=== PATIENT | male | born 1945 | race Two or more races ===

== ENCOUNTER 2016-08-25 23:54 | Inpatient (IN) | payer MEDICAID, OTHER ==
[~2016-08-25] VITALS: Ht 167.6 cm; Wt 65.3 kg
[2016-08-26] VITALS (16 sets, daily range): BP systolic 109–130; BP diastolic 56–75
--- NOTE | 2016-08-26 | NUR ---
71 YO FEMALE BB AMBULANCE FROM . PT IS ALERT X 0, NON VERBAL. NOTED PURPOSEFUL MOVEMENT. PER EMS THIS IS BASELINE FOR PT. PT IS NOTED TO BE CHRONIC G TUBE, CHRONIC VENT DEPENDENT; PORTEX 7.O, AC 14 TV 450, PEEP 5.0. PT RECTAL TEMP NOTED TO BE 100.6. PT GOWNED, PLACED ON PEAR PICKER. SKIN IS WARM TO TOUCH. 20G RIGHT WRIST IV STARTED. BLOOD SAMPLE OBTAINED AND SENT TO LAB. AWAITING ORDERS FROM PROVIDER
--- NOTE | 2016-08-26 00:10 | NUR ---
RICE CATH PLACED, URINE SAMPLE OBTAINED AND SENT TO LAB
[2016-08-26] MEDS ORDERED: LIDOCAINE 2% JEL UROJET 10 ML MM ONE ×2 (00:15→00:30)
[2016-08-26] MEDS ORDERED: HYDR-548 GT (00:21)
[2016-08-26] MEDS ORDERED: ACET160E13 GT (00:21)
[2016-08-26] MEDS ORDERED: HYDR-3326 GT (00:21)
[2016-08-26] MEDS ORDERED: LOSA50TA21 GT (00:23)
[2016-08-26] MEDS ORDERED: ACETAMINOPHEN ES 500 MG TABLET ONE (00:27)
[2016-08-26] MEDS ORDERED: ACETAMINOPHEN 650 MG/SUPP.RECT RC ONE (00:30)
[2016-08-26] MEDS ORDERED: DOCU50LI GT (00:34)
[2016-08-26] MEDS ORDERED: FERR220S3 GT (00:34)
[2016-08-26] MEDS ORDERED: POTA-10 GT (00:34)
[2016-08-26] MEDS ORDERED: AMLO5TAB2 GT (00:34)
[2016-08-26] MEDS ORDERED: ASPI81TA2 GT (00:34)
[2016-08-26] MEDS ORDERED: SACC250C6 GT (00:34)
[2016-08-26] MEDS ORDERED: LACT10SO GT (00:34)
[2016-08-26] MEDS ORDERED: FLUD0.1T3 GT (00:34)
[2016-08-26 00:35] LABS: EOSINOPHILS # (AUTO) 0.2 /CMM (0.0-0.7); EOSINOPHILS % (AUTO) 0.7 % (0.0-6.0); HEMATOCRIT 24 % (39-51); HEMOGLOBIN 7.4 g/dL (13.5-17.5); LYMPHOCYTES # (AUTO) 0.7 /CMM (0.8-4.8); LYMPHOCYTES % (AUTO) 2.4 % (20.0-44.0); MEAN CORPUSCULAR HEMOGLOBIN 24 PG (26.0-33.0); MEAN CORPUSCULAR HGB CONC 31 g/dl (31.0-36.0); MEAN CORPUSCULAR VOLUME 79 fL (80-96); MONOCYTES # (AUTO) 0.7 /CMM (0.1-1.30); MONOCYTES % (AUTO) 2.5 % (2.0-12.0); NEUTROPHILS # (AUTO) 26.6 /CMM (1.8-8.9); NEUTROPHILS % (AUTO) 94.4 % (43.0-81.0); PLATELET COUNT (AUTO) 532 /CMM (150-450); RDW COEFFICIENT OF VARIATION 17.8 (11.5-15.0); RED BLOOD CELL COUNT(AUTO) 3.07 MIL/uL (4.5-6.0); WHITE BLOOD COUNT (AUTO) 28.2 K/uL (4.3-11.0)
--- NOTE | 2016-08-26 00:36 | NUR ---
MEDICATED PT ORDERED
--- NOTE | 2016-08-26 00:38 | NUR ---
RT NOTE PT RECEIVED MECHANICALLY VENTILATED VIA PORTEX 7 CUFFED TRACH. CUFF INFLATED. PT PLACED ON VENT ON SETTINGS ENDORSED. AC 14 450 40% +5, ALARMS SET PER PROTOCOL AND AUDIBLE. VENT PLUGGED IN TO RED OUTLET. AMBU BAG AT BEDSIDE. NO DISTRESS NOTED WILL CONTINUE TO MONITOR. Addendum: 08/26/16 at 0040 by ALFA WATSON RT Amended: Links added.
[2016-08-26 00:47] LABS: APPEARANCE,URINE CLEAR (CLEAR); BILIRUBIN,URINE NEGATIVE (NEGATIVE); BLOOD, URINE NEGATIVE Ery/uL (NEGATIVE); COLOR,URINE YELLOW (YELLOW); KETONES,URINE NEGATIVE (NEGATIVE); LEUKOCYTE ESTERASE ,URINE NEGATIVE (NEGATIVE); NITRITE, URINE NEGATIVE (NEGATIVE); PROTEIN,URINE TRACE mg/dl (NEGATIVE); UGLUCOSE NEGATIVE (NEGATIVE); UROBILINOGEN,URINE 0.2 EU/dL (0.2)
[2016-08-26 00:47] LABS: CALCIUM, SERUM 8.6 mg/dL (8.5-10.1); CREATININE 0.7 mg/dL (0.6-1.3); INR 1.04 (0.87-1.13); POTASSIUM 4.1 mmol/L (3.5-5.1); PROTHROMBIN TIME 11.2 SECS (9.5-12.7)
[2016-08-26 00:52] LABS: BACTERIA,URINE None seen /HPF (None Seen); MUCUS,URINE Rare /LPF (None Seen); RBC,URINE NONE SEEN /HPF (0-2); SQUAMOUS EPITHELIAL CELL,UR Rare /HPF (None Seen); WBC,URINE 0-2 /HPF (0-3)
[2016-08-26 01:00] LABS: ALBUMIN 1.5 g/dL (3.4-5.0); BILIRUBIN,TOTAL 0.2 mg/dL (0.2-1.0); TOTAL PROTEIN, SERUM 6.2 g/dL (6.4-8.2)
[2016-08-26 01:01] LABS: TROPONIN I 0.018 ng/mL (0.00-0.056)
[2016-08-26] MEDS ORDERED: IV NS 0.9% 100 ML IV ONE (01:18)
[2016-08-26] MEDS ORDERED: IV NS 0.9% 1,000 ML ONE (01:18)
[2016-08-26] MEDS ORDERED: IV SET PRIMARY PUMP SET 1 EA INFUS.SET MC ONE ×2 (01:18→09:26)
[2016-08-26] MEDS ORDERED: IV NS 0.9% 1,000 ML BAG IV ONE (01:30)
[2016-08-26] MEDS ORDERED: AZTREONAM 1 G in IV NS 0.9% 100 ML IV ONE (01:30)
[2016-08-26] MEDS ORDERED: AZTREONAM 1 G VIAL ONE (01:30)
[2016-08-26] MEDS ORDERED: LEVOFLOXACIN 750 MG /D5W 150ML PIGGYBACK IV ONE (01:30)
--- NOTE | 2016-08-26 01:37 | NUR ---
REPORT GIVEN TO CLEMENTE FOR MEL
--- NOTE | 2016-08-26 01:56 | NUR ---
TRANSPORTED PT TO TELE BED WITHOUT INCIDENT WITH RT
[2016-08-26 01:59] LABS: BAND % (MANUAL) 6 % (0.0-5.0); LYMPHOCYTES % (MANUAL) 1 % (16-48); MONOCYTES % (MANUAL) 1 % (0-11.0); NEUTROPHILS % (MANUAL) 92 (42-76)
--- NOTE | 2016-08-26 02:00 | NUR ---
TELE AUTO RENTAL SUPERVISOR INITIAL NOTES ADMIT PT FROM ER VIA GURNEY WITH MECHANICAL VENT SET UP BY RT ORDERED. TRACHE PORTEX 7.0, TV 450, AC 14, PEEP5.0 . ANTBIOTIC INFUSING AT THIS TIME, NO ADVERSE REACTION NOTED. PT NON VERBAL BUT AROUSES TO TOUCH AND TO HIS NAME. NOT IN ANY ACUTE DISTRESS NOTED.RICE TO GRAVITY WITH CLEAR YELLOW OUTPUT NOTED. G-TUBE CLAMPED AT THIS TIME. NO RESIDUAL NOTED. SKIN WARM AND DRY TO TOUCH NOTED SACRUM AREA PARTIAL THICKNESS LOSS. NO EDEMA AND RIGHT ARM SWOLLEN AND COLD TO TOUCH, PULSE PRESENT ON RADIAL AND BRACHIAL. TELE SR PER MONITOR. KEPT HIM COMFORTABLE AND WARM AT ALL TIMES. WILL CONTINUE TO MONITOR.
--- NOTE | 2016-08-26 02:50 | NUR ---
SUPERVISOR CLAM BED/NOTES LATE ENTRY. LAB CALLED THAT THEY WANT TO FIND OUT IF PT NEEDS TO TRANSFUSE THE BLOOD. I TOLD HER THAT STILL WAIT FOR HIS PRIMARY DR FOR ADMITTING ORDERS. CALLED [facility] AND WAIT FOR RESPONSE. COMPUTER SHOT DOWN AT THIS TIME. WILL CONTINUE TO MONITOR.
--- NOTE | 2016-08-26 04:30 | NUR ---
FRONT DESK CLERK/NOTES LATE ENTRY SPOKE TO DR JOHNNY URRUTIA AND GOT ADMITTING ORDERS NOTED AND CARRIED OUT. PT RESTING COMFORTABLY IN BED WITHOUT ANY ACUTE DISTRESS NOTED. SUCTION CHELSEA HIS MOUTH NEEDED. TELE SR .
--- NOTE | 2016-08-26 07:10 | NUR ---
TELE FOOD SELECTOR CLOSING NOTES PT RESTING AT THIS TIME WITHOUT ANY ACUTE DISTRESS NOTED. STILL ON MECHANICAL VENT. STABLE CHELSEA SINCE ADMISSION. TELE SR PER MONITOR. RICE DRAINING WELL WITH CLEAR YELLOW OUTPUT . KEPT HIM WARM AND COMFORTABLE AT ALL TIMES. ENDORSE TO AM NURSE FOR CONTINUITY OF CARE.
[2016-08-26 07:18] LABS: EOSINOPHILS # (AUTO) 0.2 /CMM (0.0-0.7); EOSINOPHILS % (AUTO) 0.7 % (0.0-6.0); HEMATOCRIT 24 % (39-51); HEMOGLOBIN 7.4 g/dL (13.5-17.5); LYMPHOCYTES # (AUTO) 0.6 /CMM (0.8-4.8); LYMPHOCYTES % (AUTO) 2.2 % (20.0-44.0); MEAN CORPUSCULAR HEMOGLOBIN 25 PG (26.0-33.0); MEAN CORPUSCULAR HGB CONC 31 g/dl (31.0-36.0); MEAN CORPUSCULAR VOLUME 79 fL (80-96); MONOCYTES # (AUTO) 0.5 /CMM (0.1-1.30); MONOCYTES % (AUTO) 1.8 % (2.0-12.0); NEUTROPHILS # (AUTO) 27.9 /CMM (1.8-8.9); NEUTROPHILS % (AUTO) 95.3 % (43.0-81.0); PLATELET COUNT (AUTO) 469 /CMM (150-450); RDW COEFFICIENT OF VARIATION 17.9 (11.5-15.0); RED BLOOD CELL COUNT(AUTO) 3.02 MIL/uL (4.5-6.0); WHITE BLOOD COUNT (AUTO) 29.2 K/uL (4.3-11.0)
--- NOTE | 2016-08-26 07:20 | NUR ---
RN INITIAL NOTE REPORT RECEIVED FROM JUSTINA HOOD. PT A/OX1 NON VERBAL . TELE SR. IV L HAND #20G INTACT PATENT AND FLUSHED. NO C/O ACUTE SOB. PORTEX #7 AC 14 TV 450 PEEP 5. GT CLAMPED. F/C INTACT. ALL SAFETY MEASURES IN PLACE. WILL CONTINUE TO MONITOR.
[2016-08-26 07:29] LABS: INR 1.06 (0.87-1.13); PROTHROMBIN TIME 11.4 SECS (9.5-12.7)
[2016-08-26 07:32] LABS: CALCIUM, SERUM 8.8 mg/dL (8.5-10.1); CREATININE 0.6 mg/dL (0.6-1.3); POTASSIUM 3.9 mmol/L (3.5-5.1)
[2016-08-26] MEDS ORDERED: FEE PK DOSING 1 MIN EA MC ONE (08:08)
[2016-08-26] MEDS ORDERED: SECONDARY IV SET 1 EA INFUS.SET MC ONE ×2 (09:26→20:03)
[2016-08-26] MEDS ORDERED: IV NS 0.9% 250 ML IV ONE ×2 (09:27→13:01)
[2016-08-26] MEDS: VANCOMYCIN 1 GM in IV D5W 250 ML IV SCH ×2 (10:20→20:55)
[2016-08-26 11:24] LABS: BAND % (MANUAL) 3 % (0.0-5.0); EOSINOPHILS % (MANUAL) 3 % (0-4); LYMPHOCYTES % (MANUAL) 1 % (16-48); MONOCYTES % (MANUAL) 1 % (0-11.0); NEUTROPHILS % (MANUAL) 92 (42-76)
--- NOTE | 2016-08-26 12:18 | NUR ---
RN NOTE SPOKE TO LUIS ALFREDO SOTO REPORTED H/H 7.4 ORDERED 1 UNIT OF PRBC. GTF ORDERED. JEVETY 75 ML/HR.
[2016-08-26] MEDS ORDERED: BLOOD IV SET 1 EA INFUS.SET MC ONE (13:01)
--- NOTE | 2016-08-26 16:58 | NUR ---
RN NOTE 1 UNIT OF PRBC INFUSED ORDERED STAT CBC.
[2016-08-26] MEDS: FIBERSOURCE HN 1,000 ML BOTTLE GT SCH (17:38)
[2016-08-26 17:58] LABS: BASOPHILS # (AUTO) 0.2 /CMM (0.0-0.2); BASOPHILS % (AUTO) 0.5 % (0.0-2.0); EOSINOPHILS % (AUTO) 0.1 % (0.0-6.0); HEMATOCRIT 28 % (39-51); HEMOGLOBIN 8.7 g/dL (13.5-17.5); LYMPHOCYTES # (AUTO) 0.5 /CMM (0.8-4.8); LYMPHOCYTES % (AUTO) 1.7 % (20.0-44.0); MEAN CORPUSCULAR HEMOGLOBIN 25 PG (26.0-33.0); MEAN CORPUSCULAR HGB CONC 32 g/dl (31.0-36.0); MEAN CORPUSCULAR VOLUME 79 fL (80-96); MONOCYTES # (AUTO) 0.6 /CMM (0.1-1.30); MONOCYTES % (AUTO) 1.9 % (2.0-12.0); NEUTROPHILS # (AUTO) 28.6 /CMM (1.8-8.9); NEUTROPHILS % (AUTO) 95.8 % (43.0-81.0); PLATELET COUNT (AUTO) 544 /CMM (150-450); RDW COEFFICIENT OF VARIATION 17.8 (11.5-15.0); RED BLOOD CELL COUNT(AUTO) 3.49 MIL/uL (4.5-6.0); WHITE BLOOD COUNT (AUTO) 29.9 K/uL (4.3-11.0)
[2016-08-26 18:51] LABS: BAND % (MANUAL) 4 % (0.0-5.0); LYMPHOCYTES % (MANUAL) 2 % (16-48); NEUTROPHILS % (MANUAL) 89 (42-76)
[2016-08-26 18:52] LABS: BASOPHILS % (MANUAL) 0 % (0.0-2.0); EOSINOPHILS % (MANUAL) 0 % (0-4); MONOCYTES % (MANUAL) 5 % (0-11.0)
--- NOTE | 2016-08-26 19:15 | NUR ---
CLERK OF WORKS NOTES RECEIVED ON BED OBTUNDED,NON VERBAL,OPEN EYES TO NAME AND TOUCH,FULL CODE.ON TRACH TO VENT,SETTINGS TOLERATED WELL.WITH GT FEEDING OF FIBERSOURCE AT 75ML/HR RATE, NO RESIDUAL NOTED.HOB ELEVATED FOR ASPIRATION PRECAUTION.S/P TRANSFUSION ON PRBC 1 UNIT FOR H/H 7.4/LATEST WAS 8.7.WITH RICE CATH IN PLACE DRAINING CLEAR YELLOW OUTPUT.REPOSITION PER PROTOCOL.WILL CONTINUE TO MONITOR STATUS.
--- NOTE | 2016-08-26 19:21 | NUR ---
RN CLOSING NOTE PT A/OX1 NON VERBAL UKRAINIAN SPEAKING . TELE SR. IV L HAND #20G INTACT PATENT AND FLUSHED. NO C/O ACUTE SOB. PORTEX #7 AC 14 TV 450 PEEP 5. GT CLAMPED FIBERSOURCE @75ML/HR. F/C INTACT. ALL SAFETY MEASURES IN PLACE. REPORT GIVEN TO [facility] NURSE FOR EML.
--- NOTE | 2016-08-26 20:00 | NUR ---
DEPARTMENT EDITOR NOTES ZOYSN 4.5 GM IVPB HUNG
[2016-08-26] MEDS: PIPERACILLIN /TAZOBACTAM 4.5 G in IV D5W 50 ML IV SCH ×2 (20:05→23:45)
--- NOTE | 2016-08-26 20:15 | NUR ---
SHIPYARD SUPERVISOR NOTES SR-100 HEART RATE ON TELE MONITOR,LOTS OF MUCUS COMIKNG OUT FROM THE NOSE AND MOUTH, SUCTIONED.
[2016-08-26] MEDS ORDERED: LACTULOSE 10 G/15 ML UDC (PYXIS) GT PRN (20:30)
[2016-08-26] MEDS ORDERED: ACETAMINOPHEN 650 MG/20.3 ML UDC GT PRN (20:30)
[2016-08-26] MEDS ORDERED: HYDROCODONE/APAP 5/325MG 1 EACH TABLET GT PRN (21:00)
[2016-08-26] MEDS ORDERED: HYDROCODONE/APAP 10/325MG 1 EA TABLET GT PRN (21:00)
--- NOTE | 2016-08-26 21:00 | NUR ---
OSTEOLOGY TEACHER NOTES DUE VANCOMYCIN 1GM IVPB HUNG
[2016-08-26] MEDS ORDERED: LIDOCAINE 1%-EPI 1:200,000 SDV 10 ML VIAL IJ ONE (21:30)
[2016-08-26] MEDS ORDERED: SILVER NITRATE APPLICATOR 1 EA BOX TP ONE (21:30)
[2016-08-26] MEDS ORDERED: CELLULOSE,OXIDIZED 1 EACH EACH MC ONE (21:30)
--- NOTE | 2016-08-26 23:56 | NUR ---
STONE RUBBER NOTES DUE ROSIBEL 4.5 GM IVPB HUNG
[2016-08-27] VITALS (8 sets, daily range): BP systolic 113–133; BP diastolic 64–76
[2016-08-27] MEDS ORDERED: PIPERACILLIN /TAZOBACTAM 3.375 G in IV D5W 50 ML IV SCH ×2
--- NOTE | 2016-08-27 01:03 | NUR ---
SHEET METAL ENGINEER NOTES COUGHING,SUCTION NEEDED.
[2016-08-27] MEDS: PIPERACILLIN /TAZOBACTAM 4.5 G in IV D5W 50 ML IV SCH ×2 (05:39→14:46)
[2016-08-27 06:51] LABS: EOSINOPHILS # (AUTO) 0.2 /CMM (0.0-0.7); EOSINOPHILS % (AUTO) 0.7 % (0.0-6.0); HEMATOCRIT 26 % (39-51); HEMOGLOBIN 8.3 g/dL (13.5-17.5); LYMPHOCYTES # (AUTO) 0.5 /CMM (0.8-4.8); LYMPHOCYTES % (AUTO) 2.1 % (20.0-44.0); MEAN CORPUSCULAR HEMOGLOBIN 25 PG (26.0-33.0); MEAN CORPUSCULAR HGB CONC 32 g/dl (31.0-36.0); MEAN CORPUSCULAR VOLUME 80 fL (80-96); MONOCYTES # (AUTO) 0.9 /CMM (0.1-1.30); MONOCYTES % (AUTO) 3.6 % (2.0-12.0); NEUTROPHILS # (AUTO) 23.1 /CMM (1.8-8.9); NEUTROPHILS % (AUTO) 93.6 % (43.0-81.0); PLATELET COUNT (AUTO) 495 /CMM (150-450); RDW COEFFICIENT OF VARIATION 18.3 (11.5-15.0); RED BLOOD CELL COUNT(AUTO) 3.31 MIL/uL (4.5-6.0); WHITE BLOOD COUNT (AUTO) 24.7 K/uL (4.3-11.0)
--- NOTE | 2016-08-27 06:54 | NUR ---
AIRPLANE ELECTRICIAN NOTES FREQUENT SUCTIONING NEEDED.VITALS REMAINS STABLE.GT FEEDING TOLERATED WELL.FOR INCISIONAL BIOPSY OF SUPRA PUBIC LESIONS BY GAVIN ESPINOZA AT BEDSIDE.CONSENT SIGNED.IN NO ACUTE DISTRESS.WILL ENDORSE TO DAY NURSE FOR MEL.
[2016-08-27 06:57] LABS: CALCIUM, SERUM 8.9 mg/dL (8.5-10.1); CREATININE 0.7 mg/dL (0.6-1.3); MAGNESIUM 1.9 mg/dL (1.8-2.4); PHOSPHORUS 2.2 mg/dL (2.5-4.9); POTASSIUM 3.4 mmol/L (3.5-5.1)
--- NOTE | 2016-08-27 07:45 | NUR ---
MS RN RECEIVED ON BED, AWAKE,NONVERBAL, VENT DEPENDENT PATIENT W/ TRACT CONNECTED TO VENT, RICE TO GRAVITY DRAINING YELLOWISH URINE, NO S/S OF PAIN, G TUBE FEEDING ON AT 75ML/HOUR, REPOSITIONED FOR COMFORT,ALL NEEDS ATTENDED.
[2016-08-27 08:14] LABS: BAND % (MANUAL) 2 % (0.0-5.0); EOSINOPHILS % (MANUAL) 1 % (0-4); LYMPHOCYTES % (MANUAL) 4 % (16-48); MONOCYTES % (MANUAL) 7 % (0-11.0); NEUTROPHILS % (MANUAL) 86 (42-76)
--- NOTE | 2016-08-27 08:30 | NUR ---
MS TN DUE MEDS GIVEN VIA G TUBE,TOLERATED WELL W/O RESIDUAL.
--- NOTE | 2016-08-27 08:58 | NUR ---
WOUND CARE CONSULT: PT PRESENTS WITH LARGE GROWTH TO LOWER ABDOMEN AND DEEP TISSUE INJURY IN EVOLUTION TO SACRAL AREA, PRESENT ON ADMISSION. PT IS EXTREMELY THIN AND BONY. PT ON PORTIA ISOFLEX LOW AIRLOSS BED. ALL SKIN PROTECTION MEASURES IN PLACE. WOUND AND SKIN RECOMMENDATIONS DISCUSSED WITH NURSING STAFF. MD IN AGREEMENT WITH PLAN OF CARE. SURGICAL CONSULT IN PLACE PER DNP. Addendum: 08/27/16 at 0901 by MARLYN SAL WNDNU Amended: Links added.
[2016-08-27] MEDS: HYDROGEL DRESSING 90 GM TUBE TP SCH (09:00)
[2016-08-27] MEDS ORDERED: Z GUARD REMEDY 2 OZ OINT TP PRN (09:00)
[2016-08-27] MEDS: FERROUS SULFATE UDC 300 MG/5 ML UDC GT SCH (10:19)
[2016-08-27] MEDS: VANCOMYCIN 1 GM in IV D5W 250 ML IV SCH ×2 (10:19→21:31)
[2016-08-27] MEDS: DOCUSATE SODIUM LIQ 100 MG/10 ML UDC GT SCH (10:19)
[2016-08-27] MEDS: ASPIRIN 81 MG TAB.CHEW GT SCH (10:20)
[2016-08-27] MEDS: AMLODIPINE BESYLATE 5 MG TABLET GT SCH ×2 (10:20→17:22)
[2016-08-27] MEDS: LOSARTAN POTASSIUM 50 MG TABLET GT SCH (10:21)
[2016-08-27] MEDS: LACTOBACILLUS RHAMNOSUS GG 1 EACH CAP.SPRINK GT SCH ×2 (10:21→17:19)
[2016-08-27] MEDS: FLUDROCORTISONE 0.1 MG TABLET GT SCH (10:22)
[2016-08-27] MEDS: POTASSIUM CHLORIDE 20 MEQ POWDER PACKET GT SCH (10:22)
--- NOTE | 2016-08-27 11:00 | NUR ---
MS RN WAS SEEN BY DR. JENNIFER Robertson/ ORDERS MADE AND CARRIED OUT.
[2016-08-27] MEDS ORDERED: K PHOS NEUTRAL 250 MG TABLET PO ONE (12:30)
--- NOTE | 2016-08-27 14:00 | NUR ---
MS RN REINSERTED RICE BECAUSE, OLD RICE WAS LEAKING.
[2016-08-27] MEDS: HYDROGEL DRESSING 90 GM TUBE TP PRN ×2 (14:34→14:45)
[2016-08-27] MEDS: Z GUARD REMEDY 2 OZ OINT TP SCH (14:34)
--- NOTE | 2016-08-27 16:55 | NUR ---
MS RN WAS SEEN BY DR. ANDREWS,WANTS TO GET REPORT FORM PT'S ONCOLOGY.
[2016-08-27] MEDS ORDERED: POTASSIUM CHLORIDE 20 MEQ POWDER PACKET GT SCH (17:00)
--- NOTE | 2016-08-27 17:00 | NUR ---
MS RN CALLED SON FOR MD'S NUMBER, SMITH DR. GARRETT'S OFFICE, NOBODY ANSWER.
--- NOTE | 2016-08-27 18:50 | NUR ---
MS RN ON BED, NO DISTRESS NOTED,ALL NEEDS ATTENDED.
--- NOTE | 2016-08-27 20:00 | NUR ---
RECEIVED PATIENT IN BED, ALERT AND AWAKE, TRACH DEPENDENT, NON-VERBAL, NO SOB, NO RESPIRATORY DISTRESS, WITH MODERATE TO THICK SECRETIONS FROM MOUTH AND NOSE, RENDERED SUCTION PRN, ABLE TO CONVEY NEEDS VIA GESTURES, ON PEG TUBE FEEDING, TOLERATED WELL, PEG TUBE AUSCULTATED, POSITIVE PLACEMENT, RESIDUAL 0, RICE CATHETER DRAINING WELL, KEPT HOB ELEVATED, KEPT SAFE AND COMFORTABLE, CALL LIGHT WITHIN REACH.
[2016-08-27] MEDS ORDERED: SECONDARY IV SET 1 EA INFUS.SET MC ONE (20:11)
[2016-08-27] MEDS: MEROPENEM 500 MG in IV NS 0.9% 50 ML IV SCH (20:12)
[2016-08-27] MEDS: FIBERSOURCE HN 1,000 ML BOTTLE GT SCH (20:12)
--- NOTE | 2016-08-27 20:25 | NUR ---
DR. RON PERFORMED SUPRAPUBIC BIOPSY AT THE BEDSIDE, PROCEDURE TOLERATED WELL, MONITOR FOR BLEEDING.
--- NOTE | 2016-08-27 21:29 | NUR ---
VANCOMYCIN 1GRAM IVP WILL BE ADMINISTERED, VANCO TROUGH 15
[2016-08-28] VITALS (8 sets, daily range): BP systolic 107–132; BP diastolic 65–90
--- NOTE | 2016-08-28 03:27 | NUR ---
PATIENT IS AWAKE AND ALERT, ABLE TO GESTURE IF NEEDED SUCTION, HELPS WITH SUCTION. NO BLEEDING TO SUPRAPUBIC LESION. WILL CONTINUE TO MONITOR.
[2016-08-28] MEDS: MEROPENEM 500 MG in IV NS 0.9% 50 ML IV SCH ×3 (04:26→20:40)
[2016-08-28] MEDS ORDERED: IV NS 0.9% 250 ML IV ONE (05:06)
--- NOTE | 2016-08-28 06:22 | NUR ---
PATIENT IS ALERT AND AWAKE, VENTILATOR IN GOOD WORKING CONDITION, NO SOB, NO DISTRESS, NOT IN APPARENT PAIN, NO FACIAL GRIMACING, NO RESTLESSNESS, RENDERED SUCTION PRN, PEG TUBE FEEDING TOLERATED WELL, NO BLEEDING TO SUPRAPUBIC LESION, PROVIDED GOOD PERINEAL CARE, WOUND CARE PERFORMED, KEPT SAFE AND COMFORTABLE, CALL LIGHT WITHIN REACH.
[2016-08-28 06:37] LABS: BASOPHILS % (AUTO) 0.2 % (0.0-2.0); EOSINOPHILS # (AUTO) 0.1 /CMM (0.0-0.7); EOSINOPHILS % (AUTO) 0.7 % (0.0-6.0); HEMATOCRIT 27 % (39-51); HEMOGLOBIN 8.5 g/dL (13.5-17.5); LYMPHOCYTES # (AUTO) 0.4 /CMM (0.8-4.8); LYMPHOCYTES % (AUTO) 1.9 % (20.0-44.0); MEAN CORPUSCULAR HEMOGLOBIN 25 PG (26.0-33.0); MEAN CORPUSCULAR HGB CONC 32 g/dl (31.0-36.0); MEAN CORPUSCULAR VOLUME 80 fL (80-96); MONOCYTES # (AUTO) 0.9 /CMM (0.1-1.30); MONOCYTES % (AUTO) 3.9 % (2.0-12.0); NEUTROPHILS # (AUTO) 20.5 /CMM (1.8-8.9); NEUTROPHILS % (AUTO) 93.3 % (43.0-81.0); PLATELET COUNT (AUTO) 503 /CMM (150-450); RDW COEFFICIENT OF VARIATION 18.2 (11.5-15.0); RED BLOOD CELL COUNT(AUTO) 3.38 MIL/uL (4.5-6.0)
[2016-08-28 06:53] LABS: CALCIUM, SERUM 8.9 mg/dL (8.5-10.1); CREATININE 0.7 mg/dL (0.6-1.3); PHOSPHORUS 2.4 mg/dL (2.5-4.9); POTASSIUM 3.4 mmol/L (3.5-5.1)
--- NOTE | 2016-08-28 07:25 | NUR ---
TELE/RN AM NOTES RECEIVED PATIENT IN BED, AWAKE, RESPONSIVE TO VERBAL STIMULI, NO S/SX OF PAIN, HOB ELEVATED, ON MECHANICAL VENTILATION, O2 SAT 100%. TELE MONITOR ATTACHED, HR 98, SINUS RHYTHM. RICE CATHETER INTACT, WITH CLEAR YELLOW URINE, NO SEDIMENTS. IV PERIPHERAL LINE ON LEFT HAND PATENT, INTACT. GT INTACT, PATENT, NO RESIDUAL. BED IN LOW POSITION, 2 SR UP FOR SAFETY, NEEDS MET, WITH CALL LIGHT WITHIN EASY REACH. WILL CONTINUE TO MONITOR ACCORDINGLY.
[2016-08-28 07:41] LABS: BAND % (MANUAL) 3 % (0.0-5.0); EOSINOPHILS % (MANUAL) 1 % (0-4); LYMPHOCYTES % (MANUAL) 3 % (16-48); MONOCYTES % (MANUAL) 2 % (0-11.0); NEUTROPHILS % (MANUAL) 91 (42-76)
[2016-08-28] MEDS: ASPIRIN 81 MG TAB.CHEW GT SCH (08:40)
[2016-08-28] MEDS: FERROUS SULFATE UDC 300 MG/5 ML UDC GT SCH (08:40)
[2016-08-28] MEDS: AMLODIPINE BESYLATE 5 MG TABLET GT SCH ×2 (08:41→18:08)
[2016-08-28] MEDS: LOSARTAN POTASSIUM 50 MG TABLET GT SCH (08:41)
[2016-08-28] MEDS: LACTOBACILLUS RHAMNOSUS GG 1 EACH CAP.SPRINK GT SCH ×2 (08:41→18:08)
[2016-08-28] MEDS: Z GUARD REMEDY 2 OZ OINT TP SCH (08:42)
[2016-08-28] MEDS: HYDROGEL DRESSING 90 GM TUBE TP SCH (08:42)
[2016-08-28] MEDS: VANCOMYCIN 1 GM in IV D5W 250 ML IV SCH ×2 (08:46→21:19)
[2016-08-28] MEDS: DOCUSATE SODIUM LIQ 100 MG/10 ML UDC GT SCH (08:47)
[2016-08-28] MEDS: FIBERSOURCE HN 1,000 ML BOTTLE GT SCH (13:49)
[2016-08-28] MEDS ORDERED: K PHOS NEUTRAL 250 MG TABLET PO ONE (14:00)
--- NOTE | 2016-08-28 18:00 | NUR ---
RT PT RECEIVED TRACH'D ON PORTEX #7 CUFFED ON [facility] VENT WITH SETTINGS PER MD ORDER. PRE BILLING SPECIALIST DONE. BILAT RHONCHI BREATH SOUNDS. SUCTIONED MODERATE AMOUNTS OF THICK, PALE YELLOW SECRETIONS. TRACH SECURE AND AIRWAY PATENT. AMBU BAG AT BEDSIDE. ALARMS ON AND SET PROPERLY. VENT PLUGGED INTO RED OUTLET. NO SOB OR SIGNS OF DISTRESS NOTED AT THIS TIME. WILL CONTINUE TO MONITOR THE PATIENT FOR ANY CHANGES. Addendum: 08/28/16 at 1825 by TERRI HERRERA RT Amended: Links added.
--- NOTE | 2016-08-28 18:56 | NUR ---
TELE/RN CLOSING NOTES PATIENT REMAINS STABLE, NO CHANGES IN CONDITION NOTED DURING THE SHIFT. MECHANICAL VENTILATOR CONTINUOUSLY, 02 SATURATION 100%. TELE MONITOR ATTACHED WITH HR 100/H SINUS TACHYCARDIA, NO S/SX OF PAIN NO DISTRESS NOTED, SUCTIONED NEEDED, WITH. HOB ELEVATED FOR ASPIRATION PRECAUTION AND COMFORT. IV LINE LEFT HAND INTACT, PATENT. GT FEEDING TOLERATING WELL, NO RESIDUAL, FLASHED WITH WATER, F/C INTACT, WITH YELLOW CLOUDY URINE 100O CC OUTPUT THROUGHOUT THE SHIFT. SKIN CARE DONE, WOUND DRESSINGS CHANGED. TURNED, REPOSITIONED EVERY 2 HOURS, INCONTINENT CARE PROVIDED, UNABLE TO COLLECT STOOL FOR C-DIFF, NO BOWEL MOVEMENT DURING THE SHIFT. BED IN LOW POSITION, 2 SR UP FOR SAFETY, WITH CALL LIGHT WITHIN EASY REACH ALL THE TIME, WILL ENDORSED TO THE SILK SNAPPER NURSE ACCORDINGLY FOR EML
--- NOTE | 2016-08-28 20:00 | NUR ---
PATIENT IN BED, ALERT AND AWAKE, NON-VERBAL, TRACH DEPENDENT, VENTILATOR IN GOOD WORKING CONDITION, NO SOB, NO DISTRESS, NO FACIAL GRIMACING, NO RESTLESSNESS, RENDERED SUCTION, PATIENT HAS MODERATE SECRETIONS COMING FROM THE NOSE AND MOUTH, PEG TUBE FEEDING TOLERATED WELL, PEG TUBE AUSCULTATED, WITH 0 RESIDUAL, FLUSHED. RICE CATHETER IS DRAINING WELL OF THIEN COLORED URINE, KEPT HOB ELEVATED, ON ASPIRATION PRECAUTION, KEPT SAFE AND COMFORTABLE, CALL LIGHT WITHIN REACH.
--- NOTE | 2016-08-28 21:37 | NUR ---
VANCOMYCIN 1GRAM IVP GIVEN, VANCO TROUGH 15
[2016-08-29] VITALS: BP 115/61
[2016-08-29 00:03] VITALS: BP 115/61
[2016-08-29] MEDS: FIBERSOURCE HN 1,000 ML BOTTLE GT SCH (03:12)
--- NOTE | 2016-08-29 03:37 | NUR ---
PATIENT GIVEN BED BATH, PERFORMED WOUND CARE, SUCTIONED NEEDED.
[2016-08-29 04:00] VITALS: BP 131/70
--- NOTE | 2016-08-29 04:43 | NUR ---
NOTED LEFT HAND SALINE LOCK IS INFILTRATED. DISCONTINUED LINE, STARTED NEW LINE TO LEFT WRIST USING #24 GAUGE, GOOD BACK FLOW, PROCEDURE TOLERATED WELL.
[2016-08-29] MEDS: MEROPENEM 500 MG in IV NS 0.9% 50 ML IV SCH ×2 (05:50→13:11)
[2016-08-29 06:30] LABS: EOSINOPHILS # (AUTO) 0.2 /CMM (0.0-0.7); EOSINOPHILS % (AUTO) 0.9 % (0.0-6.0); HEMATOCRIT 26 % (39-51); HEMOGLOBIN 8.2 g/dL (13.5-17.5); LYMPHOCYTES # (AUTO) 0.5 /CMM (0.8-4.8); LYMPHOCYTES % (AUTO) 2.2 % (20.0-44.0); MEAN CORPUSCULAR HEMOGLOBIN 25 PG (26.0-33.0); MEAN CORPUSCULAR HGB CONC 32 g/dl (31.0-36.0); MEAN CORPUSCULAR VOLUME 79 fL (80-96); MONOCYTES # (AUTO) 0.7 /CMM (0.1-1.30); MONOCYTES % (AUTO) 3.2 % (2.0-12.0); NEUTROPHILS # (AUTO) 20.8 /CMM (1.8-8.9); NEUTROPHILS % (AUTO) 93.7 % (43.0-81.0); PLATELET COUNT (AUTO) 443 /CMM (150-450); RED BLOOD CELL COUNT(AUTO) 3.25 MIL/uL (4.5-6.0); WHITE BLOOD COUNT (AUTO) 22.2 K/uL (4.3-11.0)
--- NOTE | 2016-08-29 06:45 | NUR ---
PATIENT RESTING COMFORTABLY IN BED, ALERT AND AWAKE, NO SOB, NOT IN APPARENT DISTRESS, NO FACIAL GRIMACING, RENDERED SUCTION DURING SHIFT, HAS THICK SECRETIONS COMING FROM NOSE AND MOUTH, CHANGED TRACH DRESSING, PEG TUBE FEEDING TOLERATED WELL, RICE CATHETER DRAINING WELL OF THIEN COLORED URINE, RENDERED WOUND CARE, PROVIDED GOOD PERINEAL CARE, KEPT SAFE AND COMFORTABLE, CALL LIGHT WITHIN REACH.
[2016-08-29 06:51] LABS: CALCIUM, SERUM 8.4 mg/dL (8.5-10.1); CREATININE 0.6 mg/dL (0.6-1.3); MAGNESIUM 1.9 mg/dL (1.8-2.4); PHOSPHORUS 2.4 mg/dL (2.5-4.9); POTASSIUM 3.7 mmol/L (3.5-5.1); RETICULOCYTE COUNT 1.6 % (0.6-2.5)
[2016-08-29 07:04] LABS: URIC ACID 2.8 mg/dL (2.6-7.2)
[2016-08-29 08:00] VITALS: BP 138/62
[2016-08-29] MEDS: FERROUS SULFATE UDC 300 MG/5 ML UDC GT SCH (08:03)
[2016-08-29] MEDS: DOCUSATE SODIUM LIQ 100 MG/10 ML UDC GT SCH (08:03)
[2016-08-29] MEDS: ASPIRIN 81 MG TAB.CHEW GT SCH (08:03)
[2016-08-29] MEDS: LOSARTAN POTASSIUM 50 MG TABLET GT SCH (08:04)
[2016-08-29] MEDS: AMLODIPINE BESYLATE 5 MG TABLET GT SCH (08:04)
[2016-08-29] MEDS: LACTOBACILLUS RHAMNOSUS GG 1 EACH CAP.SPRINK GT SCH (08:04)
[2016-08-29] MEDS: HYDROGEL DRESSING 90 GM TUBE TP SCH (08:05)
[2016-08-29] MEDS: Z GUARD REMEDY 2 OZ OINT TP SCH (08:05)
[2016-08-29] MEDS: POTASSIUM CHLORIDE 20 MEQ POWDER PACKET GT SCH (08:12)
[2016-08-29] MEDS: VANCOMYCIN 1 GM in IV D5W 250 ML IV SCH (08:12)
[2016-08-29] MEDS: FLUDROCORTISONE 0.1 MG TABLET GT SCH (08:14)
--- NOTE | 2016-08-29 09:55 | NUR ---
TELE/RN AM NOTES PATIENT IS IN BED, AWAKE, NONVERBAL, ON MECHANICAL VENTILATION, O2 SAT 99%. NO S/SX OF PAIN, HOB ELEVATED, TELE MONITOR ATTACHED, HR 97. RICE CATHETER INTACT, WITH CLEAR YELLOW URINE, NO SEDIMENTS. IV PERIPHERAL LINE ON LEFT WRIST PATENT, INTACT. GT INTACT, PLACEMENT CHECKED, NO RESIDUAL. BED IN LOW POSITION, 2 SR UP FOR SAFETY, SUCTIONED PER PATIENT'S REQUEST, NEEDS MET, WITH CALL LIGHT WITHIN EASY REACH. WILL CONTINUE TO MONITOR ACCORDINGLY.
[2016-08-29 10:00] VITALS: BP 138/62
[2016-08-29] MEDS ORDERED: RXVAN XX (10:51)
[2016-08-29] MEDS ORDERED: MERO1VIA3 IV (10:51)
--- NOTE | 2016-08-29 16:00 | NUR ---
TELE/REFINING ENGINEER NOTES DISCHARGE PATIENT IN STABLE CONDITION, ON MECHANICAL VENT, WITH O2 SATURATION 100%. BY AMBULANCE WITH RESPIRATORY THERAPIST. VITAL SIGNS STABLE: 123/71, 104, 20, 98.2, DENIES PAIN. SUCTIONED NEEDED. IV MIDLINE ON YOSEF INTACT, PATENT, WITH DRESSING. GT IN PLACE, PATENT, INTACT, RICE CATH WITH YELLOW CLEAR URINE, NO SEDIMENTS. WOUND TREATMENT DONE, DRESSINGS CHANGED ORDERED. REPORT GIVEN TO MARTINA PARIS) [facility], TO CONTINUE WITH ANTIBIOTIC TREATMENT X 10 MORE DAYS FOR LEUKOCYTOSIS. DISCHARGE EXIT CARE SIGNED BY SON (TIFFANI), POST DISCHARGE CARE INSTRUCTION GIVEN
== END 2016-08-29 15:40 | DRG 720 ==
LOC: ER 23:56 → TELE 08-26 01:05
PROC: 5A1945Z Respiratory Ventilation, 24-96 Consecutive Hours (ICD-10-PCS; 2016-08-26)
PROC: 30233N1 Transfusion of Nonautologous Red Blood Cells into Peripheral Vein, Percutaneous Approach (ICD-10-PCS; 2016-08-26)
PROC: 0JBB0ZX Excision of Perineum Subcutaneous Tissue and Fascia, Open Approach, Diagnostic (ICD-10-PCS; principal; 2016-08-28)
PROC: 0HBAXZX Excision of Inguinal Skin, External Approach, Diagnostic (ICD-10-PCS; 2016-08-28)
PROC: 05H633Z Insertion of Infusion Device into Left Subclavian Vein, Percutaneous Approach (ICD-10-PCS; 2016-08-29)
DX: A41.9 Sepsis, unspecified organism (principal); I50.33 Acute on chronic diastolic (congestive) heart failure; G93.40 Encephalopathy, unspecified; Z99.11 Dependence on respirator [ventilator] status; J15.9 Unspecified bacterial pneumonia; J96.11 Chronic respiratory failure with hypoxia; C78.00 Secondary malignant neoplasm of unspecified lung; I11.0 Hypertensive heart disease with heart failure; L89.159 Pressure ulcer of sacral region, unspecified stage; C79.31 Secondary malignant neoplasm of brain; C14.0 Malignant neoplasm of pharynx, unspecified; D64.9 Anemia, unspecified; D75.89 Other specified diseases of blood and blood-forming organs; R13.10 Dysphagia, unspecified; Z87.891 Personal history of nicotine dependence; D72.829 Elevated white blood cell count, unspecified; Z92.3 Personal history of irradiation; Z68.23 Body mass index [BMI] 23.0-23.9, adult; Z93.1 Gastrostomy status; E88.09 Other disorders of plasma-protein metabolism, not elsewhere classified; R22.2 Localized swelling, mass and lump, trunk; E44.0 Moderate protein-calorie malnutrition
CPT/HCPCS: 31720; 36415; 36569; 71010-TC; 80048-TC; 80076-TC; 80202-TC; 81000-TC; 82306; 82728-TC; 82962-TC; 83540-TC; 83605-TC; 83615-TC; 83735-TC; 83880; 84100-TC; 84484-TC; 84550-TC; 85025-TC; 85045-TC; 85610-TC; 85652-TC; 85730-TC; 86850-TC; 86921-TC; 87040-TC; 87081-TC; 87086-TC; 88305-TC; 88312-TC; 93971-TC; 94003-TC; 94762-TC; A4216; A4606; A6248; A6253; A6402; J1956; J2185; J2543; J3370; J3490; J7030; J7050; J7060; P9016-BL; Z7610

== ENCOUNTER 2016-09-06 15:17 | Inpatient (IN) | payer MEDICAID ==
[~2016-09-06] VITALS: Ht 167.6 cm; Wt 73.7 kg
[~2016-09-06 15:17] MED LIST: ACET160E13 GT; AMLO5TAB2 GT; ASPI81TA2 GT; DOCU50LI GT; FERR220S3 GT; FLUD0.1T3 GT; HYDR-3326 GT; HYDR-548 GT; LACT10SO GT; LOSA50TA21 GT; MERO1VIA3 IV; POTA-10 GT; RXVAN XX; SACC250C6 GT
--- NOTE | 2016-09-06 15:22 | NUR ---
BB PRIVATE EMS FROM [facility] FOR ABNORMAL CHEST XRAY PULMONARY EDEMA. SENT BY DR JOHNNY URRUTIA. PLACED ON MONITOR. CAME IN WITH VENT WITH THE FOLLOWING SETTINGS: AC=14, MB=291, PEEP=5, FIO2=50%. G-TUBE AND RICE CATHETER IN PLACE FACILITIES PLANNER. AWAITING MD FOR EVAL.
--- NOTE | 2016-09-06 15:36 | NUR ---
XRAY IN PROGRESS AT BS
[2016-09-06] MEDS ORDERED: MAGN400O6 GT (15:43)
[2016-09-06] MEDS ORDERED: BISA10SU8 RC (15:43)
[2016-09-06] MEDS ORDERED: LACT-209 GT (15:43)
[2016-09-06] MEDS ORDERED: NA P133E RC (15:43)
[2016-09-06] MEDS ORDERED: ALBU2.5V13 IH ×2 (15:43)
[2016-09-06] MEDS ORDERED: IPRA0.2S9 IH ×2 (15:43)
[2016-09-06] MEDS ORDERED: ZOLP5TAB2 GT (15:43)
[2016-09-06] MEDS ORDERED: OXYC5CAP3 PO (15:47)
[2016-09-06 15:50] VITALS: BP 158/72
[2016-09-06] MEDS ORDERED: VANC1VIA2 IV (15:51)
[2016-09-06 15:55] LABS: BASOPHILS # (AUTO) 0.2 /CMM (0.0-0.2); BASOPHILS % (AUTO) 0.8 % (0.0-2.0); EOSINOPHILS # (AUTO) 0.3 /CMM (0.0-0.7); EOSINOPHILS % (AUTO) 1.4 % (0.0-6.0); HEMATOCRIT 24 % (39-51); HEMOGLOBIN 7.7 g/dL (13.5-17.5); LYMPHOCYTES # (AUTO) 0.4 /CMM (0.8-4.8); MEAN CORPUSCULAR HEMOGLOBIN 26 PG (26.0-33.0); MEAN CORPUSCULAR HGB CONC 32 g/dl (31.0-36.0); MEAN CORPUSCULAR VOLUME 79 fL (80-96); MONOCYTES # (AUTO) 1.1 /CMM (0.1-1.30); MONOCYTES % (AUTO) 4.9 % (2.0-12.0); NEUTROPHILS # (AUTO) 20.3 /CMM (1.8-8.9); NEUTROPHILS % (AUTO) 90.9 % (43.0-81.0); PLATELET COUNT (AUTO) 442 /CMM (150-450); RDW COEFFICIENT OF VARIATION 17.6 (11.5-15.0); WHITE BLOOD COUNT (AUTO) 22.3 K/uL (4.3-11.0)
[2016-09-06 15:58] LABS: APPEARANCE,URINE Clear (CLEAR); BILIRUBIN,URINE Negative (NEGATIVE); BLOOD, URINE Small Ery/uL (NEGATIVE); COLOR,URINE Yellow (YELLOW); KETONES,URINE Negative (NEGATIVE); LEUKOCYTE ESTERASE ,URINE Negative (NEGATIVE); NITRITE, URINE Negative (NEGATIVE); PROTEIN,URINE 30 mg/dl (NEGATIVE); UGLUCOSE Negative (NEGATIVE); UROBILINOGEN,URINE 0.2 EU/dL (0.2)
--- NOTE | 2016-09-06 16:03 | NUR ---
Js canales in [facility] - 09/06/16 at 1607 by KELLY PATIENT WILL BE ADMITTED. TELEMETRY BED 115-1 NURSE WILL BE TAMIA
--- NOTE | 2016-09-06 16:07 | NUR ---
PATIENT WILL BE ADMITTED. [facility] BED 115-1 NURSE WILL BE TAMIA
[2016-09-06 16:10] LABS: INR 1.03 (0.87-1.13); PROTHROMBIN TIME 10.7 SECS (9.5-12.7)
[2016-09-06 16:13] LABS: TROPONIN I < 0.017 ng/mL (0.00-0.056)
[2016-09-06 16:18] LABS: ALANINE AMINOTRANSFERASE 16 U/L (12-78); ALKALINE PHOSPHATASE 119 U/L (46-116); ASPARTATE AMINOTRANSFERASE 15 U/L (15-37); B-TYPE NATRIURETIC PEPTIDE 1169 PG/ML (0-125); BILIRUBIN,DIRECT 0.1 mg/dL (0.0-0.2); BILIRUBIN,TOTAL 0.3 mg/dL (0.2-1.0); CALCIUM, SERUM 8.7 mg/dL (8.5-10.1); CHLORIDE 100 mmol/L (98-107); CREATININE 0.6 mg/dL (0.6-1.3); GLUCOSE 143 mg/dL (74-106); POTASSIUM 4.2 mmol/L (3.5-5.1); SODIUM SERUM 140 mmol/L (136-145); UREA NITROGEN, BLOOD 18 mg/dL (7-18)
[2016-09-06 16:22] LABS: ALBUMIN 1.4 g/dL (3.4-5.0); CARBON DIOXIDE 42 mmol/L (21-32)
[2016-09-06 16:23] LABS: BACTERIA,URINE Rare /HPF (None Seen); SQUAMOUS EPITHELIAL CELL,UR Rare /HPF (None Seen); WBC,URINE 0-2 /HPF (0-3)
[2016-09-06] MEDS ORDERED: IV SET PRIMARY PUMP SET 1 EA INFUS.SET MC ONE ×3 (16:30→20:19)
[2016-09-06] MEDS ORDERED: VANCOMYCIN 1 GM in IV D5W 250 ML IV ONE (16:30)
[2016-09-06] MEDS ORDERED: PIPERACILLIN /TAZOBACTAM 3.375 G in IV D5W 50 ML IV ONE (16:30)
--- NOTE | 2016-09-06 16:30 | NUR ---
TD/MINES INSPECTOR - REPORT REPORT RECEIVED FOR PT TO BE ADMITTED FOR PULMONARY EDEMA UNDER THE CARE OF DR. OTT. AWAITING FOR PT'S ARRIVAL.
--- NOTE | 2016-09-06 16:30 | NUR ---
REPORT GIVEN TO SANA CANTRELL FOR [facility] 115
--- NOTE | 2016-09-06 17:15 | NUR ---
TD/WORLD LANGUAGE TEACHER TO [facility] PT ARRIVED VIA GURNEY FROM ER. PT TRANSFERRED TO HOSPITAL, CONNECTED TO VENTILATOR. PT SUCTIONED. PT SATURATING @ 95%, NOTED WITH RHONCHI LUNG SOUNDS, ON TELE WITH SINUS TACHY, HR 108. MIDLINE FLUSHED, PATENT WITH NO S/S OF INFECTION. ADMITTING PROTOCOL ON GOING, AWAITING FOR ADMITTING ORDERS. CL WITHIN REACHED AND SAFETY MAINTAINED. ON GOING MONITORING.
[2016-09-06 17:30] VITALS: BP 129/73
[2016-09-06] MEDS ORDERED: ACETAMINOPHEN 325 MG TABLET PO PRN (17:30)
[2016-09-06] MEDS ORDERED: HYDROCODONE/APAP 5/325MG 1 EACH TABLET PO PRN (17:30)
[2016-09-06] MEDS ORDERED: ALBUMIN 25% 25 GM in PREMIX 1 EA IV SCH (17:30)
[2016-09-06] MEDS ORDERED: MAG HYDROX/AL HYDROX/SIMETH 30 ML UDC GT PRN (17:30)
[2016-09-06] MEDS ORDERED: MAGNESIUM HYDROXIDE 30 ML UDC GT PRN (17:30)
[2016-09-06] MEDS ORDERED: ZOLPIDEM TARTRATE 5 MG TABLET GT PRN (17:30)
[2016-09-06] MEDS ORDERED: ONDANSETRON HCL/PF 4 MG/2 ML VIAL IVP PRN (17:30)
[2016-09-06] MEDS ORDERED: IPRATROPIUM NEB FS 0.5 MG/2.5 ML AMPUL.NEB IH PRN (18:00)
[2016-09-06] MEDS ORDERED: BISACODYL SUPP (10 MG) 10 MG/SUPP.RECT SUPP.RECT RC PRN (18:00)
[2016-09-06] MEDS ORDERED: NA PHOS,M-B/NA PHOS,DI-BA 1 EA ENEMA RC PRN (18:00)
[2016-09-06] MEDS ORDERED: FEE PK DOSING 1 MIN EA MC ONE (18:50)
[2016-09-06] MEDS ORDERED: LACTULOSE 10 G/15 ML UDC (PYXIS) GT PRN (19:00)
[2016-09-06] MEDS: HYDROCODONE/APAP 10/325MG 1 EA TABLET GT SCH (19:12)
[2016-09-06] MEDS: LACTOBACILLUS RHAMNOSUS GG 1 EACH CAP.SPRINK GT SCH (19:12)
[2016-09-06] MEDS: IV NS 0.9% 1,000 ML IV PRN (19:13)
[2016-09-06] MEDS: ENOXAPARIN SODIUM 40 MG/0.4 ML DISP.SYRIN SQ SCH (19:13)
[2016-09-06] MEDS: FIBERSOURCE HN 1,000 ML BOTTLE GT PRN (19:13)
[2016-09-06] MEDS ORDERED: ALBUTEROL FS 2.5 MG/3 ML VIAL.NEB NEB PRN (19:30)
--- NOTE | 2016-09-06 19:30 | NUR ---
TD/RN AM SHIFT END NOTES NO ACUTE CHANGE OF CONDITION NOTED SINCE PT WAS ADMITTED TO UNIT LATE THIS AFTERNOON. ALL NEEDS MET. PT ENDORSED TO PM NURSE TO CONTINUE CARE. CL WITHIN REACHED AND SAFETY MAINTAINED.
--- NOTE | 2016-09-06 19:30 | NUR ---
MOODY RN INITIAL NOTE RECEIVED REPORT FROM TAMIA HOOD. PT IN BED, OBTUNDED-OPENS EYES. CHRONIC VENT TRACH TOLERATING CURRENT VENT SETTINGS. SUCTIONED AND ORAL CARE PROVIDED. LUNG SOUNDS RHONCHI. BOWEL SOUNDS PRESENT. GT PATENT AND INTACT WITH FEEDING RUNNING. IV PATENT AND INTACT. PULSES PRESENT IN ALL EXTREMITIES. BED IN LOW LOCKED POSITION. CALL LIGHT WITHIN REACH. WILL CONTINUE TO MONITOR.
[2016-09-06] MEDS ORDERED: SECONDARY IV SET 1 EA INFUS.SET MC ONE ×2 (19:46→20:54)
[2016-09-06] MEDS ORDERED: IV SET PRIMARY 1 EA INFUS.SET MC ONE (19:46)
[2016-09-06] MEDS: LEVOFLOXACIN 500 MG /D5W 100ML 100 ML IV SCH (19:50)
[2016-09-06] MEDS: ALBUMIN 25% 25 GM in PREMIX 1 EA IV SCH (19:55)
[2016-09-06] MEDS: ALBUTEROL FS 2.5 MG/3 ML VIAL.NEB NEB SCH (19:57)
[2016-09-06] MEDS: IPRATROPIUM NEB FS 0.5 MG/2.5 ML AMPUL.NEB IH SCH (19:57)
[2016-09-06 20:00] VITALS: BP 96/56
[2016-09-06] MEDS: VANCOMYCIN 1 GM in IV D5W 250 ML IV SCH (20:09)
[2016-09-06] MEDS ORDERED: IV NS 0.9% 250 ML IV ONE (20:19)
[2016-09-06] MEDS: PIPERACILLIN /TAZOBACTAM 3.375 G in IV D5W 100 ML IV SCH (20:58)
[2016-09-06] MEDS: HYDROCODONE/APAP 5/325MG 1 EACH TABLET GT SCH (23:48)
[2016-09-07] VITALS (14 sets, daily range): BP systolic 106–173; BP diastolic 59–85
[2016-09-07] MEDS: ALBUTEROL FS 2.5 MG/3 ML VIAL.NEB NEB SCH ×4 (01:01→19:37)
[2016-09-07] MEDS: IPRATROPIUM NEB FS 0.5 MG/2.5 ML AMPUL.NEB IH SCH ×4 (01:01→19:37)
[2016-09-07] MEDS ORDERED: IV SET PRIMARY 1 EA INFUS.SET MC ONE (02:24)
[2016-09-07] MEDS: ALBUMIN 25% 25 GM in PREMIX 1 EA IV SCH ×3 (02:31→15:39)
[2016-09-07] MEDS: PIPERACILLIN /TAZOBACTAM 3.375 G in IV D5W 100 ML IV SCH ×2 (05:08→12:27)
[2016-09-07] MEDS: HYDROCODONE/APAP 10/325MG 1 EA TABLET GT SCH ×2 (05:41→17:26)
[2016-09-07 07:57] LABS: EOSINOPHILS # (AUTO) 0.2 /CMM (0.0-0.7); EOSINOPHILS % (AUTO) 0.9 % (0.0-6.0); HEMATOCRIT 21 % (39-51); LYMPHOCYTES # (AUTO) 0.5 /CMM (0.8-4.8); MEAN CORPUSCULAR HEMOGLOBIN 25 PG (26.0-33.0); MEAN CORPUSCULAR HGB CONC 31 g/dl (31.0-36.0); MEAN CORPUSCULAR VOLUME 80 fL (80-96); MONOCYTES # (AUTO) 0.9 /CMM (0.1-1.30); MONOCYTES % (AUTO) 3.6 % (2.0-12.0); NEUTROPHILS # (AUTO) 22.6 /CMM (1.8-8.9); NEUTROPHILS % (AUTO) 93.5 % (43.0-81.0); PLATELET COUNT (AUTO) 397 /CMM (150-450); RDW COEFFICIENT OF VARIATION 19.1 (11.5-15.0); RED BLOOD CELL COUNT(AUTO) 2.68 MIL/uL (4.5-6.0); WHITE BLOOD COUNT (AUTO) 24.1 K/uL (4.3-11.0)
[2016-09-07 07:59] LABS: HEMOGLOBIN 6.6 g/dL (13.5-17.5)
--- NOTE | 2016-09-07 08:00 | NUR ---
TD/RN AM SHIFT INITIAL NOTES RECEIVED PT ASLEEP IN BED. NO ACUTE CHANGE OF CONDITION OR ACUTE RESPIRATORY DISTRESS NOTED. PT ALERT X 1, NON-VERBAL, NO GRIMACING NOTED. ON VENTILATOR SET AT PRESCRIBED RATES, SATURATING @ 100%, LUNG SOUNDS DIMINISHED. SUCTIONED FOR AIRWAY CLEARANCE. ON TELE WITH SINUS TACHY, HR 104. MIDLINE PATENT WITH ON GOING INFUSION OF NS @ 75CC/HR. RICE CATHETER NOTED WITH CLOUDY YELLOW URINE OUTPUT. GTF @ 75CC/HR, NO GASTRIC RESIDUAL, FLUSHED, PATENT. PT IS COMFORTABLE AT THIS TIME. SCHEDULED AM MEDS TO BE GIVEN. CL WITHIN REACHED AND SAFETY MAINTAINED. ON GOING MONITORING. Addendum: 09/07/16 at 1034 by OMER FULLER RN ADDENDUM: DR. OTT AWARE OF CRITICAL LAB RESULT FOR HGB 6.6.
[2016-09-07 08:01] LABS: ALBUMIN 1.9 g/dL (3.4-5.0); BILIRUBIN,TOTAL 0.4 mg/dL (0.2-1.0); CALCIUM, SERUM 8.6 mg/dL (8.5-10.1); CREATININE 0.9 mg/dL (0.6-1.3); MAGNESIUM 1.9 mg/dL (1.8-2.4); PHOSPHORUS 2.9 mg/dL (2.5-4.9); POTASSIUM 3.9 mmol/L (3.5-5.1); TOTAL PROTEIN, SERUM 6.1 g/dL (6.4-8.2)
--- NOTE | 2016-09-07 09:18 | NUR ---
TD/RN ROUNDS - DR. STAPLES PT SEEN & EXAMINED BY DR. OTT. WITH NEW ORDERS RECEIVED TO INFUSED PT WITH 2 UNITS OF PRBC AND TO COLLECT STOOL FOR OB. ORDERS NOTED AND CARRIED. MONITORING CONTINUED.
[2016-09-07] MEDS: DOCUSATE SODIUM LIQ 100 MG/10 ML UDC GT SCH (09:22)
[2016-09-07] MEDS: PANTOPRAZOLE 40 MG/PACK PACK GT SCH (09:23)
[2016-09-07] MEDS: LOSARTAN POTASSIUM 50 MG TABLET GT SCH (09:23)
[2016-09-07] MEDS: AMLODIPINE BESYLATE 5 MG TABLET GT SCH ×2 (09:23→17:26)
[2016-09-07] MEDS: LACTOBACILLUS RHAMNOSUS GG 1 EACH CAP.SPRINK GT SCH ×2 (09:23→17:26)
[2016-09-07] MEDS: VANCOMYCIN 1 GM in IV D5W 250 ML IV SCH ×2 (09:23→19:35)
[2016-09-07] MEDS: ASPIRIN 81 MG TAB.CHEW GT SCH (09:29)
[2016-09-07 10:14] LABS: BAND % (MANUAL) 5 % (0.0-5.0); LYMPHOCYTES % (MANUAL) 1 % (16-48); MONOCYTES % (MANUAL) 3 % (0-11.0); NEUTROPHILS % (MANUAL) 91 (42-76)
--- NOTE | 2016-09-07 10:45 | NUR ---
TD/RN ROUNDS - DR. BENITEZ PT SEEN & EXAMINED BY DR. BENITEZ. NO NEW ORDERS RECEIVED AT THIS TIME. MONITORING CONTINUED.
[2016-09-07] MEDS ORDERED: SECONDARY IV SET 1 EA INFUS.SET MC ONE ×2 (10:50→15:40)
[2016-09-07] MEDS ORDERED: IV NS 0.9% 250 ML IV ONE ×2 (10:53→19:28)
[2016-09-07] MEDS ORDERED: BLOOD IV SET 1 EA INFUS.SET MC ONE (10:53)
--- NOTE | 2016-09-07 11:45 | NUR ---
TD/RN ROUNDS - DR. SEBASTIAN UPDATED PT'S CONDITION. PT SEEN & EXAMINED BY DR. SEBASTIAN. NO NEW ORDERS RECEIVED AT THIS TIME. MONITORING CONTINUED.
[2016-09-07] MEDS: HYDROCODONE/APAP 5/325MG 1 EACH TABLET GT SCH (12:27)
[2016-09-07] MEDS: IV NS 0.9% 1,000 ML IV PRN (12:27)
[2016-09-07] MEDS: FIBERSOURCE HN 1,000 ML BOTTLE GT PRN (12:28)
[2016-09-07 12:57] LABS: THYROID STIMULATING HORMONE 7.966 uIU/mL (0.358-3.74)
--- NOTE | 2016-09-07 14:00 | NUR ---
TD/RN BLOOD TRANSFUSION - INITIATED TRANSFUSION OF 1 OF 2 UNITS OF PRBC, INITIATED. ON GOING MONITORING.
--- NOTE | 2016-09-07 16:25 | NUR ---
TD/RN 1 OF 2 UNITS PRBC - COMPLETED TRANSFUSED 1 OF 2 UNITS PRBC, NO ADVERSE REACTION NOTED DURING OR AFTER TRANSFUSION. ON GOING MONITORING.
[2016-09-07] MEDS: PIPERACILLIN /TAZOBACTAM 3.375 G in IV D5W 50 ML IV SCH (17:26)
--- NOTE | 2016-09-07 19:00 | NUR ---
TD/RN BLOOD TRANSFUSION COMPLETED A TOTAL OF 2 UNITS OF PRBC TRANSFUSED. NO ADVERSE REACTION NOTED DURING OR AFTER TRANSFUSION. PT TOLERATED PROCEDURE. ON GOING MONITORING.
[2016-09-07] MEDS ORDERED: IOHEXOL-300 100 ML VIAL IV ONE (19:28)
[2016-09-07] MEDS ORDERED: CT SWABBABLE VALVE TRANS SET 1 EA INFUS.SET MC ONE (19:28)
--- NOTE | 2016-09-07 19:30 | NUR ---
MOODY RN INITIAL NOTE RECEIVED REPORT FROM TAMIA HOOD. PT IN BED, OPENS EYES MOVES RIGHT ARM, NON VERBAL. LUNG SOUNDS RHONCHI. CHRONIC VENT TRACH, TOLERATING CURRENT VENT SETTINGS. BOWEL SOUNDS PRESENT, GT PATENT AND INTACT WITH FEEDING RUNNING. FACIAL EDEMA, RIGHT ARM SWELLING, LEFT HAND SWELLING. PULSES PRESENT. LEFT UPPER ARM MIDLINE PATENT AND INTACT WITH FLUIDS RUNNING. PER DAY NURSE 2 UNITS OF PRBC GIVEN. AWAITING CT SCAN AND ABG. BED IN LOW LOCKED POSITION. CALL LIGHT WITHIN REACH. WILL CONTINUE TO MONITOR.
[2016-09-07] MEDS: LEVOFLOXACIN 500 MG /D5W 100ML 100 ML IV SCH (19:35)
--- NOTE | 2016-09-07 19:35 | NUR ---
MOODY RN CALL XRAY AND RT TO COORDINATE A GOOD TIME TO GO TO CT. TIME SET FOR 2029. PT STABLE FOR TRANSPORT.
--- NOTE | 2016-09-07 19:45 | NUR ---
TD/RN AM SHIFT END NOTES NO ACUTE CHANGE FO CONDITION NOTED DURING THE SHIFT. ALL NEEDS MET. PT ENDORSED TO PM NURSE TO CONTINUE CARE. CL WITHIN REACHED AND SAFETY MAINTAINED.
[2016-09-07 20:23] LABS: ABG BASE EXCESS 9.6 mmol/L; ABG OXYGEN SATURATION 95.2 % (92.0-98.5); ABG PCO2 61.2 mmHg (35.0-45.0); ABG PH 7.389 (7.350-7.450); ABG PO2 79.2 mmHg (75.0-100.0); AaDO2 208.5 mmHg; COHb 1.6 % (0.5-1.5); MetHb 0.8 % (0.0-1.5); O2Hb 92.9 % (94.0-97.0); PEEP,BG 5 cm H2O; SITE, ABG Left Brachial; VENT MODE, BG VENT AC; VT, ABG 450 mL
[2016-09-07] MEDS: ENOXAPARIN SODIUM 40 MG/0.4 ML DISP.SYRIN SQ SCH (22:00)
[2016-09-08] VITALS: BP 159/76
[2016-09-08] MEDS: PIPERACILLIN /TAZOBACTAM 3.375 G in IV D5W 50 ML IV SCH ×5 (00:29→23:52)
[2016-09-08] MEDS: HYDROCODONE/APAP 5/325MG 1 EACH TABLET GT SCH ×3 (00:29→23:52)
[2016-09-08] MEDS: IPRATROPIUM NEB FS 0.5 MG/2.5 ML AMPUL.NEB IH SCH ×4 (01:11→19:47)
[2016-09-08] MEDS: ALBUTEROL FS 2.5 MG/3 ML VIAL.NEB NEB SCH ×4 (01:11→19:47)
[2016-09-08 04:00] VITALS: BP 152/68
[2016-09-08] MEDS: HYDROCODONE/APAP 10/325MG 1 EA TABLET GT SCH ×2 (06:08→17:01)
[2016-09-08 07:20] LABS: CALCIUM, SERUM 8.6 mg/dL (8.5-10.1); CREATININE 0.6 mg/dL (0.6-1.3); POTASSIUM 3.9 mmol/L (3.5-5.1)
[2016-09-08 08:00] VITALS: BP 98/60
[2016-09-08] MEDS: VANCOMYCIN 1 GM in IV D5W 250 ML IV SCH (08:00)
--- NOTE | 2016-09-08 08:00 | NUR ---
TD/RN AM SHIFT INITIAL NOTES RECEIVED PT ASLEEP IN BED. NO ACUTE CHANGE OF CONDITION OR ACUTE RESPIRATORY DISTRESS NOTED. PT ALERT X 1, OPEN EYES, NON-VERBAL, NO GRIMACING NOTED. ON VENTILATOR SET AT PRESCRIBED RATES, SATURATING @ 100%, LUNG SOUNDS RHONCHI. SUCTIONED FOR AIRWAY CLEARANCE. ON TELE WITH SINUS RHYTHM, HR 100. PT HAS FACIAL EDEMA, WITH EDEMA ON RIGHT ARM AND LEFT HAND. MIDLINE PATENT WITH ON GOING INFUSION OF NS @ 75CC/HR. RICE CATHETER NOTED WITH CLOUDY YELLOW URINE OUTPUT. GTF @ 75CC/HR, NO GASTRIC RESIDUAL, FLUSHED, PATENT. PT IS COMFORTABLE AT THIS TIME. SCHEDULED AM MEDS TO BE GIVEN EXCEPT FOR BP MEDS D/T BP 98/60. CL WITHIN REACHED AND SAFETY MAINTAINED. ON GOING MONITORING. Addendum: 09/08/16 at 1001 by OMER FULLER RN ADDENDUM: SCHEDULED VANCOMYCIN HELD, D/T LEVEL 23.
[2016-09-08] MEDS: DOCUSATE SODIUM LIQ 100 MG/10 ML UDC GT SCH (08:06)
[2016-09-08] MEDS: PANTOPRAZOLE 40 MG/PACK PACK GT SCH (08:07)
[2016-09-08] MEDS: LACTOBACILLUS RHAMNOSUS GG 1 EACH CAP.SPRINK GT SCH ×2 (08:07→16:57)
[2016-09-08] MEDS: AMLODIPINE BESYLATE 5 MG TABLET GT SCH (08:08)
[2016-09-08] MEDS: LOSARTAN POTASSIUM 50 MG TABLET GT SCH (08:08)
[2016-09-08] MEDS: ASPIRIN 81 MG TAB.CHEW GT SCH (08:09)
[2016-09-08 08:30] LABS: EOSINOPHILS # (AUTO) 0.3 /CMM (0.0-0.7); EOSINOPHILS % (AUTO) 1.4 % (0.0-6.0); HEMATOCRIT 28 % (39-51); LYMPHOCYTES # (AUTO) 0.2 /CMM (0.8-4.8); LYMPHOCYTES % (AUTO) 1.2 % (20.0-44.0); MEAN CORPUSCULAR HEMOGLOBIN 27 PG (26.0-33.0); MEAN CORPUSCULAR HGB CONC 32 g/dl (31.0-36.0); MEAN CORPUSCULAR VOLUME 83 fL (80-96); MONOCYTES # (AUTO) 0.6 /CMM (0.1-1.30); MONOCYTES % (AUTO) 3.1 % (2.0-12.0); NEUTROPHILS # (AUTO) 19.2 /CMM (1.8-8.9); NEUTROPHILS % (AUTO) 94.3 % (43.0-81.0); PLATELET COUNT (AUTO) 356 /CMM (150-450); RDW COEFFICIENT OF VARIATION 17.6 (11.5-15.0); RED BLOOD CELL COUNT(AUTO) 3.39 MIL/uL (4.5-6.0); WHITE BLOOD COUNT (AUTO) 20.3 K/uL (4.3-11.0)
[2016-09-08] MEDS ORDERED: FLUDROCORTISONE 0.1 MG TABLET GT SCH (09:00)
[2016-09-08] MEDS ORDERED: POTASSIUM CHLORIDE 20 MEQ POWDER PACKET GT SCH (09:00)
[2016-09-08] MEDS ORDERED: IV NS 0.9% 250 ML IV ONE (10:57)
[2016-09-08 12:00] VITALS: BP 126/68
--- NOTE | 2016-09-08 12:00 | NUR ---
TD/RN NOON ROUNDS PT WITH FAMILY MEMBER'S AT BEDSIDE. SUCTIONED AND REPOSITIONED. NO CHANGE OF CONDITION. MONITORING CONTINUED.
[2016-09-08 16:00] VITALS: BP 122/74
--- NOTE | 2016-09-08 16:00 | NUR ---
TD/RN AFTERNOON ROUNDS NO CHANGE OF CONDITION. ON GOING MONITORING.
[2016-09-08] MEDS: FIBERSOURCE HN 1,000 ML BOTTLE GT PRN (16:57)
--- NOTE | 2016-09-08 19:30 | NUR ---
MO[facility] RN INITIAL NOTES RECEIVED PATIENT A/OX1, NON-VERBAL, VENT DEPENDENT. NO RESPIRATORY DISTRESS NOTED. WITH VENT SETTINGS AC 14, VT 450, FIO2 40%, PEEP 5. ON TELE MONITOR SR. NO S/S OF PAIN OR DISCOMFORT. SKIN WARM AND TO TOUCH. TOLERATING GTF, GT PATENT, INTACT, IN PLACE. WITH YOSEF MIDLINE TKO. WITH F/C PATENT AND INTACT, DRAINING BY GRAVITY. PER REPORT PATIENT FOR THORACENTESIS IN AM. NOTED WITH FACIAL SWELLING, RIGHT ARM SWELLING. HOB KEPT ELEVATED. SIDE RAILS UP AND LOCKED. BED KEPT AT LOWEST POSITION. CALL LIGHT KEPT WITHIN EASY REACH. WILL CONTINUE TO MONITOR.
--- NOTE | 2016-09-08 19:46 | NUR ---
TD/RN AM SHIFT END NOTES ALL NEEDS MET. NO ACUTE CHANGE OF CONDITION NOTED DURING THE SHIFT. PT ENDORSED TO PM NURSE TO CONTINUE CARE. ALSO ENDORSED TO HOLD LOVENOX FOR THORACENTESIS IN AM. CL WITHIN REACHED AND SAFETY MAINTAINED.
[2016-09-08 20:00] VITALS: BP 148/75
--- NOTE | 2016-09-08 20:10 | NUR ---
mary rn notes ID MEDICATION ADMINISTRATION PROFESSIONAL at bedside.
[2016-09-08] MEDS: LEVOFLOXACIN 500 MG /D5W 100ML 100 ML IV SCH (20:25)
[2016-09-08] MEDS: ENOXAPARIN SODIUM 40 MG/0.4 ML DISP.SYRIN SQ SCH (21:00)
[2016-09-08] MEDS: VANCOMYCIN 0.75 GM in IV D5W 250 ML IV SCH (21:23)
[2016-09-08] MEDS: oxyCODONE IR immediate release 5 MG CAPSULE PO PRN (21:29)
[2016-09-09] VITALS: BP 137/77
[2016-09-09] MEDS: ALBUTEROL FS 2.5 MG/3 ML VIAL.NEB NEB SCH ×4 (01:47→19:35)
[2016-09-09] MEDS: IPRATROPIUM NEB FS 0.5 MG/2.5 ML AMPUL.NEB IH SCH ×4 (01:47→19:35)
[2016-09-09 04:00] VITALS: BP 131/76
[2016-09-09] MEDS ORDERED: IV NS 0.9% 250 ML IV ONE (05:13)
[2016-09-09] MEDS: HYDROCODONE/APAP 10/325MG 1 EA TABLET GT SCH ×2 (05:20→17:24)
[2016-09-09] MEDS: PIPERACILLIN /TAZOBACTAM 3.375 G in IV D5W 50 ML IV SCH ×3 (05:20→17:24)
[2016-09-09] MEDS: FIBERSOURCE HN 1,000 ML BOTTLE GT PRN ×2 (05:35→21:51)
--- NOTE | 2016-09-09 06:06 | NUR ---
[facility] RN CLOSING NOTES NO SIGNIFICANT CHANGES OVERNIGHT. PAIN MANAGED NEEDED. KEPT COMFORTABLE. NO RESPIRATORY DISTRESS NOTED. TOLERATING CURRENT VENT SETTINGS. SUCTIONED FREQUENTLY ORALLY AND TRACHEAL. SKIN WARM AND DRY TO TOUCH. SR TO ST, MAX 111. TOLERATING GTF. F/C PATENT AND INTACT, DRAINING BY GRAVITY. HOB KEPT ELEVATED. SIDE RAILS UP AND LOCKED. BED KEPT AT LOWEST POSITION. CALL LIGHT KEPT WITHIN EASY REACH. PENDING THORACENTESIS TODAY. WILL ENDORSE CONTINUITY OF CARE TO AM NURSE. Addendum: 09/09/16 at 0615 by KT CERNA RN TURNED AND REPOSITIONED Q2 AND PRN. TRACH CARE DONE.
[2016-09-09 06:44] LABS: CREATININE 0.7 mg/dL (0.6-1.3); POTASSIUM 4.6 mmol/L (3.5-5.1)
--- NOTE | 2016-09-09 07:38 | NUR ---
RN NOTES RECEIVED PT LAYING IN BED, AWAKE ALERT, NON VERBAL. PT ON TRACHE, WITH MECH VENT SETTINGS PRESCRIBED, SUCTIONED FOR AIRWAY CLEARANCE. TELE MONITORING SHOWS SR HR 98 THIS TIME. ONGOING GTF FIBERSOURCE@75ML/HR NO RESIDUAL NOTED AT THIS TIME. YOSEF MIDLINE RUNNING NS TKO. FC PATENT DRAINING WELL TO CLOSED SYSTEM WITH YELLOW OUTPUT. KEPT COMFORTABLE. SAFETY MAINTAINED, REPOSITIONED FOR COMFORT. WILL CONT TO MONITOR, CALL LIGHT WITHIN REACH.
[2016-09-09 08:00] VITALS: BP 153/79
[2016-09-09] MEDS: LACTOBACILLUS RHAMNOSUS GG 1 EACH CAP.SPRINK GT SCH ×2 (08:10→16:02)
[2016-09-09] MEDS: DOCUSATE SODIUM LIQ 100 MG/10 ML UDC GT SCH (08:10)
[2016-09-09] MEDS: PANTOPRAZOLE 40 MG/PACK PACK GT SCH (08:10)
[2016-09-09] MEDS: VANCOMYCIN 0.75 GM in IV D5W 250 ML IV SCH ×2 (08:10→21:34)
[2016-09-09] MEDS ORDERED: HYDROGEL DRESSING 90 GM TUBE TP PRN (10:00)
--- NOTE | 2016-09-09 10:02 | NUR ---
WOUND CARE CONSULT: PT PRESENTS WITH 4+ PITTING EDEMA WHICH IS GENERALIZED, ESPECIALLY NOTED TO RT ARM AND LEFT FOOT. SACRAL STAGE II ULCER NOTED WITH MULTIPLE OPEN AREAS, EXTENDING TO BUTTOCKS, PRESENT ON ADMISSION. PT NOTED TO HAVE LARGE GROWTH TO SUPRAPUBIC AREA, PRESENT ON ADMISSION. RECOMMEND SURGICAL FOLLOW UP. FIRST STEP MATTRESS ORDERED. ALL SKIN PROTECTION AND WOUND RECOMMENDATIONS DISCUSSED WITH NURSING STAFF. MD IN AGREEMENT WITH PLAN OF CARE. Addendum: 09/09/16 at 1005 by MARLYN SAL WNDNU Amended: Links added.
--- NOTE | 2016-09-09 10:14 | NUR ---
RN NOTES SPOKE WITH DR HYMAN, PER MD TO SEND SPECIMEN FROM R LUNG THORACENTESIS FOR DIAGNOSTICS- CYTOLOGY, CBC, GRAM STAIN C&S. ORDERS READ BACK NOTED AND CARRIED OUT.
[2016-09-09 10:17] LABS: *SPE A/G RATIO 0.6 (0.7-1.7); *SPE ALBUMIN 2.2 g/dL (2.9-4.4); *SPE ALPHA-1-GLOBULIN 0.5 g/dL (0.0-0.4); *SPE ALPHA-2-GLOBULIN 0.9 g/dL (0.4-1.0); *SPE BETA GLOBULIN 0.8 g/dL (0.7-1.3); *SPE GLOBULIN, TOTAL 3.4 g/dL (2.2-3.9); *SPE M-SPIKE Not Observed g/dL (Not Observed); *SPE PROTEIN TOTAL 5.6 g/dL (6.0-8.5); *SPEGAMMA GLOBULIN 1.1 g/dL (0.4-1.8)
[2016-09-09] MEDS: HYDROGEL DRESSING 90 GM TUBE TP SCH (10:54)
[2016-09-09] MEDS: CLOTRIMAZOLE 1% 15 GM TUBE TP SCH ×2 (10:54→16:02)
--- NOTE | 2016-09-09 11:30 | NUR ---
RN NOTES SPECIMEN FLUID SENT TO LAB FOR ANALYSIS/TESTING
[2016-09-09 12:00] VITALS: BP 162/69
[2016-09-09] MEDS: HYDROCODONE/APAP 5/325MG 1 EACH TABLET GT SCH (12:33)
[2016-09-09 16:00] VITALS: BP 134/65
--- NOTE | 2016-09-09 19:30 | NUR ---
MANAGER OF RADIOLOGY INITIAL NOTES RECEIVED PATIENT ASLEEP, NON-VERBAL, VENT DEPENDENT. RESPONSIVE TO TOUCH, AND NAME. NO S/S OF PAIN OR DISCOMFORT AT THIS TIME. PER REPORT PATIENT S/P THORACENTESIS, SITE C/D/I, NO BLEEDING NOTED. ON TELE MONITOR SINUS TACH 104. SKIN WARM AND DRY TO TOUCH. WITH F/C PATENT AND INTACT, DRAINING BY GRAVITY. WITH YOSEF MIDLINE PATENT AND INTACT, TKO. TOLERATING GTF, GT PATENT AND INTACT. HOB KEPT ELEVATED. SIDE RAILS UP AND LOCKED. BED KEPT AT LOWEST POSITION. CALL LIGHT KEPT WITHIN EASY REACH. WILL CONTINUE TO MONITOR.
[2016-09-09 20:00] VITALS: BP 147/78
[2016-09-09] MEDS ORDERED: SECONDARY IV SET 1 EA INFUS.SET MC ONE (20:31)
[2016-09-09] MEDS: LEVOFLOXACIN 500 MG /D5W 100ML 100 ML IV SCH (20:38)
[2016-09-09] MEDS: oxyCODONE IR immediate release 5 MG CAPSULE PO PRN (21:34)
[2016-09-09] MEDS: ENOXAPARIN SODIUM 40 MG/0.4 ML DISP.SYRIN SQ SCH (21:36)
[2016-09-10] VITALS: BP 131/62
[2016-09-10] MEDS: PIPERACILLIN /TAZOBACTAM 3.375 G in IV D5W 50 ML IV SCH ×5 (00:27→23:26)
[2016-09-10] MEDS: HYDROCODONE/APAP 5/325MG 1 EACH TABLET GT SCH ×3 (00:27→23:29)
[2016-09-10] MEDS: ALBUTEROL FS 2.5 MG/3 ML VIAL.NEB NEB SCH ×4 (00:41→19:59)
[2016-09-10] MEDS: IPRATROPIUM NEB FS 0.5 MG/2.5 ML AMPUL.NEB IH SCH ×4 (00:41→19:59)
[2016-09-10 04:00] VITALS: BP 140/72
[2016-09-10] MEDS ORDERED: IV NS 0.9% 250 ML IV ONE ×2 (05:15→08:10)
[2016-09-10] MEDS: HYDROCODONE/APAP 10/325MG 1 EA TABLET GT SCH ×2 (06:00→17:28)
--- NOTE | 2016-09-10 07:00 | NUR ---
HEEL EMERY BUFFER CLOSING NOTES NO SIGNIFICANT CHANGES OVERNIGHT. PAIN MANAGED NEEDED. NO RESPIRATORY DISTRESS NOTED. TOLERATING GTF. WITH F/C DRAINING, PATENT AND INTACT. KEPT CLEAN AND DRY. WOUND TREATMENT DONE. TURNED AND REPOSITIONED Q2 AND PRN. HOB KEPT ELEVATED. SIDE RAILS UP AND LOCKED. BED KEPT AT LOWEST POSITION. CALL LIGHT KEPT WITHIN EASY REACH. WILL ENDORSE CONTINUITY OF CARE TO AM NURSE.
--- NOTE | 2016-09-10 07:30 | NUR ---
RN NOTES HYDROCODONE 10/325 WAS GIVEN BY POST [facility] REGISTERED NURSE NURSE SCHEDULED BUT CHARTED IN THE PT' CHART DUE TO COMPUTER SYSTEM BEING SHUT DOWN.
[2016-09-10 08:00] VITALS: BP 120/69
[2016-09-10 08:10] LABS: CARBON DIOXIDE 36 mmol/L (21-32); CHLORIDE 95 mmol/L (98-107); CREATININE 0.7 mg/dL (0.6-1.3); GLUCOSE 171 mg/dL (74-106); POTASSIUM 4.6 mmol/L (3.5-5.1); SODIUM SERUM 134 mmol/L (136-145); UREA NITROGEN, BLOOD 19 mg/dL (7-18)
[2016-09-10] MEDS ORDERED: IV SET PRIMARY PUMP SET 1 EA INFUS.SET MC ONE (08:10)
[2016-09-10] MEDS ORDERED: SECONDARY IV SET 1 EA INFUS.SET MC ONE ×2 (08:10→12:26)
[2016-09-10] MEDS: DOCUSATE SODIUM LIQ 100 MG/10 ML UDC GT SCH (08:48)
[2016-09-10] MEDS: LACTOBACILLUS RHAMNOSUS GG 1 EACH CAP.SPRINK GT SCH ×2 (08:48→17:28)
[2016-09-10] MEDS: CLOTRIMAZOLE 1% 15 GM TUBE TP SCH ×2 (08:48→17:28)
[2016-09-10] MEDS: HYDROGEL DRESSING 90 GM TUBE TP SCH (08:48)
[2016-09-10] MEDS: PANTOPRAZOLE 40 MG/PACK PACK GT SCH (08:49)
[2016-09-10] MEDS: VANCOMYCIN 0.75 GM in IV D5W 250 ML IV SCH (09:58)
[2016-09-10 12:00] VITALS: BP 143/78
[2016-09-10] MEDS: FIBERSOURCE HN 1,000 ML BOTTLE GT PRN (12:40)
[2016-09-10] MEDS: oxyCODONE IR immediate release 5 MG CAPSULE PO PRN (13:58)
--- NOTE | 2016-09-10 15:03 | NUR ---
RN NOTES PT AOX2, ON BED, ON MECH VENT, WITH ORDERED SETTINGS, TOLERATES WELL, SATURATION >97% MOVES R HAND/ARM, CO PAIN, NECK REDNESS NOTED, VS STABLE, NO FEVER, G TUBE FEEDING IN PLACE, FEEDING RUNNING, TOLERATES WELL, WBC 2.3, ON ABX TX, WOUND CARE DONE ORDERED, KEPT CLEAN AND DRY, TURNED AND REPOSITIONED Q2H, HEELS OFFLOAD, TEACHING REINFORCED TO PT AND FAMILY, SAFETY MEASURES IMPLEMENTED, CALL LIGHT WITHIN REACH. WILL CONTINUE TO MONITOR.
[2016-09-10 16:00] VITALS: BP 144/67
--- NOTE | 2016-09-10 19:15 | NUR ---
RN OPENING NOTES: RECEIVED PATIENT ON BED AROUSABLE WITH SPONTANEOUS EYE OPENING; [facility] WITH SETTINGS ORDERED. SR ON MONITOR HR AT 91 BPM. IV ACCESS ON YOSEF MIDLINE PATENT AND INTACT, NS AT TKO. GT FEEDING ONGOING, NO RESIDUALS NOTED AT THIS TIME. FC INTACT, TO A CLOSED SYSTEM. ASPIRATION PRECAUTIONS OBSERVED; BED IN LOCKED POSITION. HOB ELEVATED. SAFETY MEASURES ENSURED AT ALL TIMES. CONTINUOUSLY MONITORED CLOSELY.
[2016-09-10 20:00] VITALS: BP 146/72
[2016-09-10] MEDS: ENOXAPARIN SODIUM 40 MG/0.4 ML DISP.SYRIN SQ SCH (21:35)
[2016-09-11] VITALS: BP_SYST 141; BP_DIAS 71; BP_DIAS 74
[2016-09-11] MEDS: ALBUTEROL FS 2.5 MG/3 ML VIAL.NEB NEB SCH ×4 (01:32→20:00)
[2016-09-11] MEDS: IPRATROPIUM NEB FS 0.5 MG/2.5 ML AMPUL.NEB IH SCH ×4 (01:32→19:59)
[2016-09-11 04:00] VITALS: BP 114/77
[2016-09-11] MEDS ORDERED: IV NS 0.9% 250 ML IV ONE (05:03)
[2016-09-11] MEDS: PIPERACILLIN /TAZOBACTAM 3.375 G in IV D5W 50 ML IV SCH ×3 (05:39→18:29)
[2016-09-11] MEDS: HYDROCODONE/APAP 10/325MG 1 EA TABLET GT SCH ×2 (05:39→18:30)
[2016-09-11] MEDS: FIBERSOURCE HN 1,000 ML BOTTLE GT PRN (05:39)
--- NOTE | 2016-09-11 07:16 | NUR ---
RN CLOSING NOTES: PATIENT REMAINED NOT IN APPARENT DISTRESS. TOLERATED MECH VENT SETTINGS WELL. REMAINED SR TO ST ON MONITOR. PAIN MANAGEMENT ORDERED. SAFETY MEASURES ENSURED. SKIN CARE RENDERED. PENDING AM LABS. CONTINUOUSLY MONITORED. ENDORSED TO AM SHIFT RN.
[2016-09-11 07:23] LABS: CALCIUM, SERUM 9.2 mg/dL (8.5-10.1); CARBON DIOXIDE 37 mmol/L (21-32); CHLORIDE 93 mmol/L (98-107); CREATININE 0.8 mg/dL (0.6-1.3); GLUCOSE 175 mg/dL (74-106); POTASSIUM 4.6 mmol/L (3.5-5.1); SODIUM SERUM 134 mmol/L (136-145); UREA NITROGEN, BLOOD 20 mg/dL (7-18)
[2016-09-11 08:00] VITALS: BP 106/44
[2016-09-11] MEDS: LACTOBACILLUS RHAMNOSUS GG 1 EACH CAP.SPRINK GT SCH ×2 (09:21→18:30)
[2016-09-11] MEDS: CLOTRIMAZOLE 1% 15 GM TUBE TP SCH ×2 (09:21→18:31)
[2016-09-11] MEDS: HYDROGEL DRESSING 90 GM TUBE TP SCH (09:21)
[2016-09-11] MEDS: DOCUSATE SODIUM LIQ 100 MG/10 ML UDC GT SCH (09:22)
[2016-09-11] MEDS: PANTOPRAZOLE 40 MG/PACK PACK GT SCH (09:22)
[2016-09-11] MEDS: ACETYLCYSTEINE 10% 3,000 MG/30 ML VIAL PO SCH ×2 (10:46→17:00)
[2016-09-11] MEDS: oxyCODONE IR immediate release 5 MG CAPSULE PO PRN (10:48)
[2016-09-11 12:00] VITALS: BP 121/56
--- NOTE | 2016-09-11 12:00 | NUR ---
RN NOTES PT'S SON TIFFANI, DISCUSSED THE NECESSITY OF THE CT OF THE NECK WITH DR SEBASTIAN AND REFUSED THE TEST. CT WAS NOT DONE.
[2016-09-11] MEDS: HYDROCODONE/APAP 5/325MG 1 EACH TABLET GT SCH (12:51)
[2016-09-11 16:00] VITALS: BP 111/56
--- NOTE | 2016-09-11 19:15 | NUR ---
RN INITIAL NOTES RECEIVED PATIENT OBTUNDED, ABLE TO OPEN EYES SPONTANEOUSLY. ON MECH VENT VIA TRACH, C/D/I, AIRWAY SUCTIONED, KEPT PATENT. SR ON TELE, HR OF 71. GTF INFUSING WELL, NOTED WITH NO GASTRIC RESIDUAL, HOB ELEVATED. YOSEF MIDLINE INTACT AND PATENT. F/C INTACT AND DRAINING WELL WITH CLEAR, YELLOW URINE. NO ACUTE SIGNS OF DISTRESS AND DISCOMFORT. SAFETY AND COMFORT ENSURED. BED IN LOW AND LOCKED POSITION. WILL MONITOR.
[2016-09-11 20:00] VITALS: BP 124/83
[2016-09-11] MEDS: ENOXAPARIN SODIUM 40 MG/0.4 ML DISP.SYRIN SQ SCH (21:33)
[2016-09-12] VITALS: BP 108/66
[2016-09-12] MEDS: HYDROCODONE/APAP 5/325MG 1 EACH TABLET GT SCH ×2 (00:38→12:14)
[2016-09-12] MEDS: PIPERACILLIN /TAZOBACTAM 3.375 G in IV D5W 50 ML IV SCH ×4 (00:38→17:53)
[2016-09-12] MEDS: IPRATROPIUM NEB FS 0.5 MG/2.5 ML AMPUL.NEB IH SCH ×4 (01:39→21:07)
[2016-09-12] MEDS: ALBUTEROL FS 2.5 MG/3 ML VIAL.NEB NEB SCH ×4 (01:39→21:06)
[2016-09-12] MEDS ORDERED: IV NS 0.9% 250 ML IV ONE (03:10)
[2016-09-12 04:00] VITALS: BP 103/71
[2016-09-12] MEDS: FIBERSOURCE HN 1,000 ML BOTTLE GT PRN ×2 (05:42→17:53)
[2016-09-12] MEDS: HYDROCODONE/APAP 10/325MG 1 EA TABLET GT SCH ×2 (05:42→17:53)
--- NOTE | 2016-09-12 06:40 | NUR ---
RN CLOSING NOTES PATIENT WITH NO ACUTE CHANGE IN CONDITION OBSERVED OVERNIGHT. TOLERATED MECH VENT SETTINGS WELL, AIRWAY SUCTIONED NEEDED. TRACH CARE DONE. WOUND TREATMENT RENDERED ORDERED. GTF INFUSING WELL, NO GASTRIC RESIDUAL NOTED. F/C INTACT AND DRAINING WELL. YOSEF MIDLINE PATENT WITH GOOD BLOOD RETURN. ALL DUE MEDS GIVEN ORDERED. AM LABS DRAWN. PATIENT'S NEEDS ANTICIPATED AND MET. SAFETY AND COMFORT ENSURED. BED IN LOW AND LOCKED POSITION. WILL ENDORSE ACCORDINGLY FOR CONTINUITY OF CARE.
[2016-09-12 06:41] LABS: EOSINOPHILS # (AUTO) 0.4 /CMM (0.0-0.7); HEMATOCRIT 28 % (39-51); HEMOGLOBIN 8.9 g/dL (13.5-17.5); LYMPHOCYTES # (AUTO) 0.5 /CMM (0.8-4.8); LYMPHOCYTES % (AUTO) 2.3 % (20.0-44.0); MEAN CORPUSCULAR HEMOGLOBIN 27 PG (26.0-33.0); MEAN CORPUSCULAR HGB CONC 32 g/dl (31.0-36.0); MEAN CORPUSCULAR VOLUME 83 fL (80-96); MONOCYTES # (AUTO) 0.7 /CMM (0.1-1.30); MONOCYTES % (AUTO) 3.4 % (2.0-12.0); NEUTROPHILS # (AUTO) 18.9 /CMM (1.8-8.9); NEUTROPHILS % (AUTO) 92.3 % (43.0-81.0); PLATELET COUNT (AUTO) 348 /CMM (150-450); RDW COEFFICIENT OF VARIATION 19.6 (11.5-15.0); RED BLOOD CELL COUNT(AUTO) 3.31 MIL/uL (4.5-6.0); WHITE BLOOD COUNT (AUTO) 20.4 K/uL (4.3-11.0)
[2016-09-12 07:09] LABS: CALCIUM, SERUM 9.6 mg/dL (8.5-10.1); CARBON DIOXIDE 38 mmol/L (21-32); CHLORIDE 95 mmol/L (98-107); CREATININE 0.8 mg/dL (0.6-1.3); GLUCOSE 140 mg/dL (74-106); PHOSPHORUS 2.7 mg/dL (2.5-4.9); POTASSIUM 4.5 mmol/L (3.5-5.1); SODIUM SERUM 135 mmol/L (136-145); UREA NITROGEN, BLOOD 20 mg/dL (7-18)
--- NOTE | 2016-09-12 07:15 | NUR ---
RN INITIAL NOTES RECEIVED PT IN BED, OPENS EYES, TRACKS,DOES NOT FOLLOW COMMANDS, PT IS ON [facility] VENT PORTEX # 7 AC14 TV 450 FIO2 40% PEEP 5, NO S/S OF RESP.DISTRESS OR SOB NOTED AT THIS TIME, PT REQUIRES SUCTION OFTEN, PT IS ON TELE MONITOR SHOWING SR @ 98, NO S/S OF DISTRESS OR DISCOMFORT NOTED AT THIS TIME, PT HAS F/C DRAINING WELL TO GRAVITY, PT IS NOTED WITH MULTIPLE SKIN ISSUES, PT HAS GTUBE, INTACT/PATENT, FLUSHING WELL, RUNNING FIBERSOURCE @ 75ML/HR, TOLERATING WELL, NO RESIDUALS NOTED AT THIS TIME, PT HAS YOSEF MIDLINE,RUNNING TKO, C/D/I/PATENT, FLUSHING WELL, WITH GOOD BLOOD RETURN, NO S/S OF INFECTION/INFILTRATION NOTED AT THIS TIME, ALL SAFETY MEASURES IN PLACE AT ALL TIMES, CALL LIGHT WITHIN EASY REACH, ALL NEEDS MET AT THIS TIME, WILL MONITOR PT CLOSELY FOR CHANGES
[2016-09-12 08:00] VITALS: BP 129/66
[2016-09-12] MEDS: PANTOPRAZOLE 40 MG/PACK PACK GT SCH (08:30)
[2016-09-12] MEDS: Z GUARD REMEDY 2 OZ OINT TP PRN (08:30)
[2016-09-12] MEDS: LACTOBACILLUS RHAMNOSUS GG 1 EACH CAP.SPRINK GT SCH ×2 (08:30→17:53)
[2016-09-12] MEDS: CLOTRIMAZOLE 1% 15 GM TUBE TP SCH ×2 (08:30→17:54)
[2016-09-12] MEDS: DOCUSATE SODIUM LIQ 100 MG/10 ML UDC GT SCH (08:30)
[2016-09-12] MEDS: HYDROGEL DRESSING 90 GM TUBE TP SCH (08:31)
--- NOTE | 2016-09-12 08:43 | NUR ---
FAMILY REFUSED CT NECK W/WO CONTRAST, PER RN.
--- NOTE | 2016-09-12 08:54 | NUR ---
RT PT RECEIVED TRACHED ON THE VENT WITH NOTED SETTINGS. PT IS AWAKE BUT DOES NOT FOLLOW COMMANDS. VENT ALARMS ARE SET AND AUDIBLE WITH BVM BY BEDSIDE. WATER TREATMENT PLANT REPAIRER CUFF PRESSURE NOTED. VENT IS PLUGGED INTO RED OUTLET. SX SMALL THIN WHITE/CLEAR SECRETIONS. NO RESPIRATORY DISTRESS NOTED AT THIS TIME, WILL CONTINUE TO MONITOR.
--- NOTE | 2016-09-12 09:45 | NUR ---
RN NOTES CALLED SON FOR UPDATE, SON STILL REFUSING CT OF NECK, MD AWARE, SON WILL COME LATER AND WILL DISCUSS PLAN OF CARE
[2016-09-12] MEDS: ACETYLCYSTEINE 10% 3,000 MG/30 ML VIAL PO SCH ×2 (10:11→17:53)
--- NOTE | 2016-09-12 11:00 | NUR ---
RN NOTES SON AT BEDSIDE, DOES NOT WANT CT NECK, INFORMED MD, SON WANTS COMFORT
[2016-09-12 12:00] VITALS: BP_SYST 129; BP_SYST 138; BP_DIAS 66; BP_DIAS 67
[2016-09-12 16:00] VITALS: BP 140/73
--- NOTE | 2016-09-12 18:33 | NUR ---
RN CLOSING NOTES PT REMAINED STABLE DURING SHIFT, ALL MEDICATIONS GIVEN, ALL MD ORDERS CARRIED OUT, IV REMAINS INTACT/PATENT,GTUBE INTACT/PATENT, RUNNING FEEDING ORDERED, ALL SAFETY MEASURES IN PLACE AT ALL TIMES, WILL GIVE REPORT TO PM RN FOR MEL
--- NOTE | 2016-09-12 19:15 | NUR ---
RN INITIAL NOTES RECEIVED PATIENT OBTUNDED, ABLE TO OPEN EYES SPONTANEOUSLY, NO ACUTE SIGNS OF DISTRESS AND DISCOMFORT. TRACH ON MECH VENT , C/D/I, AIRWAY SUCTIONED. ST ON TELE, HR OF 105. GTF INFUSING WELL, NOTED WITH NO GASTRIC RESIDUAL, HOB ELEVATED. YOSEF MIDLINE INTACT AND PATENT. F/C INTACT DRAINING WITH CLEAR, YELLOW URINE. SAFETY AND COMFORT ENSURED. BED IN LOW AND LOCKED POSITION. WILL MONITOR.
[2016-09-12 20:00] VITALS: BP 107/72
[2016-09-12] MEDS: ENOXAPARIN SODIUM 40 MG/0.4 ML DISP.SYRIN SQ SCH (21:23)
[2016-09-13] VITALS: BP 107/67
[2016-09-13] MEDS: PIPERACILLIN /TAZOBACTAM 3.375 G in IV D5W 50 ML IV SCH ×4 (00:08→17:49)
[2016-09-13] MEDS: HYDROCODONE/APAP 5/325MG 1 EACH TABLET GT SCH ×3 (00:08→23:59)
[2016-09-13] MEDS: IPRATROPIUM NEB FS 0.5 MG/2.5 ML AMPUL.NEB IH SCH ×4 (02:22→19:10)
[2016-09-13] MEDS: ALBUTEROL FS 2.5 MG/3 ML VIAL.NEB NEB SCH ×4 (02:22→19:10)
[2016-09-13 04:00] VITALS: BP 105/75
[2016-09-13] MEDS ORDERED: IV NS 0.9% 250 ML IV ONE (05:26)
[2016-09-13] MEDS: FIBERSOURCE HN 1,000 ML BOTTLE GT PRN ×2 (05:33→22:25)
[2016-09-13] MEDS: HYDROCODONE/APAP 10/325MG 1 EA TABLET GT SCH ×2 (05:34→17:49)
--- NOTE | 2016-09-13 06:27 | NUR ---
RN CLOSING NOTES PATIENT WITH NO ACUTE CHANGE OF CONDITION OBSERVED OVERNIGHT. SAFETY AND COMFORT ENSURED. WOUND TREATMENT RENDERED. TRACH CARE DONE, SUCTIONED FREQUENTLY FOR COPIOUS SECRETIONS, AIRWAY KEPT PATENT. GTF TOLERATED WELL. SR-ST OVERNIGHT, 90-105. MONITORED CLOSELY FOR ANY INDICATIONS OF PAIN AND DISCOMFORT. NEEDS ANTICIPATED AND MET. SAFETY AND COMFORT ENSURED. WILL ENDORSE ACCORDINGLY FOR CONTINUITY OF CARE.
--- NOTE | 2016-09-13 07:10 | NUR ---
RN INITIAL NOTES: Rec'd pt on bed, easily arousable, not in any distress. Pt on mech vent via trach (Portex 7) w/ ff settings: AC 14, TV 450, FiO2 40%, PEEP 5, saturating at 98%. On telemonitor, SR. Has FC patent & intact draining to yellowish urine output. Has patent & intact PEG w/ Fibersource x 75 cc/hr infusing well, no residual noted upon checking. Has YOSEF midline on TKO, patent & intact w/ no signs of infection/ infiltration noted. Provided comfort & safety measures. Call light placed w/in reach. Bed kept low & in locked pos. Will continue to monitor.
[2016-09-13 07:22] LABS: CALCIUM, SERUM 9.7 mg/dL (8.5-10.1); CARBON DIOXIDE 37 mmol/L (21-32); CHLORIDE 95 mmol/L (98-107); CREATININE 0.8 mg/dL (0.6-1.3); GLUCOSE 186 mg/dL (74-106); POTASSIUM 4.4 mmol/L (3.5-5.1); SODIUM SERUM 133 mmol/L (136-145); UREA NITROGEN, BLOOD 20 mg/dL (7-18)
[2016-09-13 08:00] VITALS: BP 103/63
--- NOTE | 2016-09-13 08:00 | NUR ---
RT PATIENT REC'D TRACHED ON [facility] VENT WITH ORDERS SET PER MD TOLERATED WELL. VENT ALARMS CHECKED + AUDIBLE. VENT PLUGGED INTO RED OUTLET. CUFF PRESSURE CHECKED LAB SCIENTIST. TRACH SECURE AND IN PROPER POSITION VIA FOAM TRACH TIE. B/S DIM COARSE. SUCTIONED WITH MOD AMT PALE SEMITHICK SECRETIONS. PALE APPEARS COMFORTABLE AND IN NO RESP DISTRESS. AMBU BAG AT [facility]. CONTINUE CURRENT PLAN OF RESP CARE. Addendum: 09/13/16 at 0856 by BISHNU PRESSLEY RT Amended: Links added.
[2016-09-13] MEDS: PANTOPRAZOLE 40 MG/PACK PACK GT SCH (08:51)
[2016-09-13] MEDS: DOCUSATE SODIUM LIQ 100 MG/10 ML UDC GT SCH (08:51)
[2016-09-13] MEDS: LACTOBACILLUS RHAMNOSUS GG 1 EACH CAP.SPRINK GT SCH ×2 (08:51→17:48)
[2016-09-13] MEDS: HYDROGEL DRESSING 90 GM TUBE TP SCH (08:52)
[2016-09-13] MEDS: Z GUARD REMEDY 2 OZ OINT TP PRN (08:52)
[2016-09-13] MEDS: CLOTRIMAZOLE 1% 15 GM TUBE TP SCH ×2 (08:52→17:49)
[2016-09-13 12:00] VITALS: BP_SYST 135; BP_SYST 146; BP_DIAS 63; BP_DIAS 79
[2016-09-13 16:00] VITALS: BP 107/67
--- NOTE | 2016-09-13 18:47 | NUR ---
RN CLOSING NOTES: No acute changes noted w/in shift. Pt tolerated prescribed mech vent via settings. Suctioned secretions. PEG kept patent & intact on Fibersource x 75 cc/hr infusing well, no residual noted w/in shift. YOSEF midline kept patent & intact w/ no signs of infection/ infiltration noted. Kept well rested. Offered bed bath but son refused. Call light placed w/in reach. Bed kept low & in locked pos. Will endorse to PM RN for MEL.
--- NOTE | 2016-09-13 19:19 | NUR ---
SAMPLER OVENS INITIAL NOTE RECEIVED PT IN BED. A/O X1 OPEN EYES AND IRISH SPEAKING. ON MECH VENT WITH SETTINGS WELL TOLERATED. TELE-SR 89. IV YOSEF MIDLINE CLEAN AND INTACT. GTUBE FLUSHING WELL WITH 10 ML RESIDUAL NOTED. RICE CATHETER IN PLACE AND DRAINING BY GRAVITY. WILL CONTINUE TO MONITOR.
[2016-09-13 20:00] VITALS: BP 107/63
[2016-09-13] MEDS: ENOXAPARIN SODIUM 40 MG/0.4 ML DISP.SYRIN SQ SCH (21:54)
[2016-09-14] VITALS: BP 104/65
[2016-09-14] MEDS: IPRATROPIUM NEB FS 0.5 MG/2.5 ML AMPUL.NEB IH SCH ×4 (01:03→19:20)
[2016-09-14] MEDS: ALBUTEROL FS 2.5 MG/3 ML VIAL.NEB NEB SCH ×4 (01:03→19:20)
[2016-09-14] MEDS ORDERED: IV SET PRIMARY PUMP SET 1 EA INFUS.SET MC ONE (03:37)
[2016-09-14] MEDS ORDERED: IV NS 0.9% 250 ML IV ONE (03:37)
[2016-09-14 04:00] VITALS: BP 122/68
[2016-09-14] MEDS: HYDROCODONE/APAP 10/325MG 1 EA TABLET GT SCH ×2 (05:10→17:02)
--- NOTE | 2016-09-14 06:25 | NUR ---
UNDERTAKER ASSISTANT CLOSING NO ACUTE DISTRESS NOTED. VENT SETTINGS WELL TOLERATED. ALL SAFETY MEASURES IN PLACE. REPOSITIONED Q2H. RIEC IN PLACE. WILL ENDORSE TO NEXT SHIFT FOR MEL.
--- NOTE | 2016-09-14 07:15 | NUR ---
RN INITIAL NOTES: Rec'd pt on bed, not in any form of distress. Pt on mech vent via trach (Portex 7) w/ ff settings: AC 14, TV 450, FiO2 40%, PEEP 5. On telemonitor, SR. Has FC patent & intact draining to yellowish urine output. Has patent & intact PEG w/ Fibersource x 75 cc/hr infusing well, no residual noted upon checking. Has YOSEF midline on TKO, patent & intact w/ no signs of infection/ infiltration noted. Provided comfort & safety measures. Call light placed w/in reach. Bed kept low & in locked pos. Will continue to monitor.
[2016-09-14 08:00] VITALS: BP 127/73
[2016-09-14] MEDS: PANTOPRAZOLE 40 MG/PACK PACK GT SCH (08:01)
[2016-09-14] MEDS: DOCUSATE SODIUM LIQ 100 MG/10 ML UDC GT SCH (08:01)
[2016-09-14] MEDS: LACTOBACILLUS RHAMNOSUS GG 1 EACH CAP.SPRINK GT SCH ×2 (08:01→16:58)
[2016-09-14] MEDS: CLOTRIMAZOLE 1% 15 GM TUBE TP SCH ×2 (08:02→16:58)
[2016-09-14] MEDS: Z GUARD REMEDY 2 OZ OINT TP PRN (08:02)
[2016-09-14] MEDS: HYDROGEL DRESSING 90 GM TUBE TP SCH (08:02)
[2016-09-14] MEDS: HYDROCODONE/APAP 5/325MG 1 EACH TABLET GT SCH ×2 (11:53→23:12)
[2016-09-14 12:00] VITALS: BP 120/68
--- NOTE | 2016-09-14 14:45 | NUR ---
RN NOTES: Called son Marcos re: recommendation of Dr. Pope to do ALEX of RUE, pt refused. JUAN LUIS LINK made aware. Addendum: 09/14/16 at 1821 by VALDO LYON RN CORRECTION: pt's son refused.
[2016-09-14] MEDS: FIBERSOURCE HN 1,000 ML BOTTLE GT PRN (15:53)
[2016-09-14 16:00] VITALS: BP 132/74
--- NOTE | 2016-09-14 18:53 | NUR ---
RN CLOSING NOTES: No acute changes noted w/in shift. Pt tolerated prescribed mech vent via settings. Suctioned secretions. PEG kept patent & intact on Fibersource x 75 cc/hr infusing well, no residual noted w/in shift. YOSEF midline kept patent & intact w/ no signs of infection/ infiltration noted. Kept well rested. Wound care done. Turned, repositioned & offloaded heels. Will endorse to PM RN for MEL.
--- NOTE | 2016-09-14 19:31 | NUR ---
CARD CHECKER INITIAL NOTES PT IS IN BED, NON VERBAL, RESPONSE TO LIGHT TOUCH. TRACH INTACT, NO RESPIRATORY DISTRESS NOTED. ON MECHANICAL VENT AND TOLERATING CURRENT SETTINGS. ON TELE MONITOR SR. ON CONTINUOUS FEEDING, NO RESIDUAL NOTED. RICE CATH IS INTACT AND DRAINING YELLOW URINE. TURNED AND REPOSITIONED. BED LOCKED AND IN LOWEST POSITION. SIDE RAILS UP, CALL LIGHTS WITHIN REACH.
--- NOTE | 2016-09-14 19:31 | NUR ---
ALL [facility] MEDS CLEARED FOR PTS SAFETY
[2016-09-14 20:00] VITALS: BP_SYST 126; BP_DIAS 73; BP_DIAS 93
[2016-09-14] MEDS: ENOXAPARIN SODIUM 40 MG/0.4 ML DISP.SYRIN SQ SCH (20:14)
[2016-09-15] VITALS: BP 128/66
[2016-09-15] MEDS: IPRATROPIUM NEB FS 0.5 MG/2.5 ML AMPUL.NEB IH SCH ×4 (00:52→20:07)
[2016-09-15] MEDS: ALBUTEROL FS 2.5 MG/3 ML VIAL.NEB NEB SCH ×4 (00:53→20:07)
[2016-09-15] MEDS ORDERED: IV NS 0.9% 250 ML IV ONE (03:34)
--- NOTE | 2016-09-15 03:48 | NUR ---
ALL [facility] CLEARED FOR PT'S SAFETY
[2016-09-15 04:00] VITALS: BP 124/68
[2016-09-15] MEDS: FIBERSOURCE HN 1,000 ML BOTTLE GT PRN ×2 (04:00→20:54)
[2016-09-15] MEDS: HYDROCODONE/APAP 10/325MG 1 EA TABLET GT SCH ×2 (06:11→17:05)
--- NOTE | 2016-09-15 06:54 | NUR ---
CIRCULAR SAW OPERATOR CLOSING NOTES NO SIGNIFICANT CHANGES OVERNIGHT. NO SOB, NO RESPIRATORY DISTRESS NOTED, TRACH GIVEN, TOLERATING CURRENT VENT SETTINGS, GT FEEDING PATENT, AND CONTINUOUS FEEDING AT 75ML/HR TOLERATING WELL, YOSEF MIDLINE IS PATENT, NO S/SX OF INFECTION/INFILTRATION NOTED. WOUND CARE DONE, NO NEW SKIN BREAKDOWN NOTED. TURNED AND REPOSITIONED Q2H AND PRN, KEPT CLEAN AND DRY, BED LOCKED AND IN LOWEST POSITION, SIDE RAILS UP, ALL SAFETY MEASURES MET, WILL ENDORSED TO AM NURSE FOR CONTINUATION OF CARE.
--- NOTE | 2016-09-15 07:47 | NUR ---
INITIAL COFOUNDER NOTE RCVD PT ABLE TO OPEN EYES,NON-VERBAL.SHOWING NO S/O DISTRESS OR PAIN. TOLERATING ORDERED VENT SETTINGS AND G-TUBE FEEDING RATE.NO RESIDUAL OBTAINED. SR ON TELE. RICE IN PLACE DRAINING CLEAR, YELLOW URINE. YOSEF MIDLINE C/D/I/PATENT. NO S/O INFILTRATION OR PHLEBITIS OBSERVED. WILL CONTINUE TO MONITOR PT FOR SAFETY AND COMFORT. CALL LIGHT WITHIN REACH. BED IN LOW AND LOCKED POSITION.
[2016-09-15 08:00] VITALS: BP 114/64
[2016-09-15] MEDS: PANTOPRAZOLE 40 MG/PACK PACK GT SCH (08:28)
[2016-09-15] MEDS: HYDROGEL DRESSING 90 GM TUBE TP SCH (08:28)
[2016-09-15] MEDS: LACTOBACILLUS RHAMNOSUS GG 1 EACH CAP.SPRINK GT SCH ×2 (08:28→17:05)
[2016-09-15] MEDS: DOCUSATE SODIUM LIQ 100 MG/10 ML UDC GT SCH (08:28)
[2016-09-15] MEDS: CLOTRIMAZOLE 1% 15 GM TUBE TP SCH ×2 (08:29→17:06)
[2016-09-15 12:00] VITALS: BP 148/72
[2016-09-15] MEDS: HYDROCODONE/APAP 5/325MG 1 EACH TABLET GT SCH ×2 (12:51→23:00)
[2016-09-15 16:00] VITALS: BP 130/65
--- NOTE | 2016-09-15 19:29 | NUR ---
ENDING MARKETING STRATEGIST NOTE PT CONTINUES TO TOLERATE ORDERED VENT SETTINGS AND TUBE FEEDING RATE. NO CHANGE IN CONDITION. PT'S CARE ENDORSED TO RESOURCE FORESTER RN FOR CONTINUITY OF CARE.
[2016-09-15 20:00] VITALS: BP 138/70
--- NOTE | 2016-09-15 20:08 | NUR ---
PT RCVD ON [facility] VENT WITH NOTED SETTINGS. SUCTIONED LARGE AMOUNT OF YELLOWISH THICK WITH BLOOD TINGED SECRETIONS. VENT ALARMED AND WORKING,VENT PLUGGED INTO RED OUTLET. AMBU BAG AT [facility], BILATERAL BS NOTED. NO RESPIRATORY DISTRESS NOTED. WILL CONTINUE TO MONITOR.
[2016-09-15] MEDS: ENOXAPARIN SODIUM 40 MG/0.4 ML DISP.SYRIN SQ SCH (20:54)
[2016-09-16] VITALS (7 sets, daily range): BP systolic 104–151; BP diastolic 57–75
[2016-09-16] MEDS: ALBUTEROL FS 2.5 MG/3 ML VIAL.NEB NEB SCH ×2 (01:07→07:25)
[2016-09-16] MEDS: IPRATROPIUM NEB FS 0.5 MG/2.5 ML AMPUL.NEB IH SCH ×2 (01:07→07:25)
[2016-09-16] MEDS: HYDROCODONE/APAP 10/325MG 1 EA TABLET GT SCH (05:18)
[2016-09-16 06:19] LABS: BASOPHILS # (AUTO) 0.1 /CMM (0.0-0.2); BASOPHILS % (AUTO) 0.7 % (0.0-2.0); EOSINOPHILS # (AUTO) 0.3 /CMM (0.0-0.7); EOSINOPHILS % (AUTO) 1.6 % (0.0-6.0); HEMATOCRIT 29 % (39-51); HEMOGLOBIN 9.4 g/dL (13.5-17.5); LYMPHOCYTES # (AUTO) 0.6 /CMM (0.8-4.8); LYMPHOCYTES % (AUTO) 2.9 % (20.0-44.0); MEAN CORPUSCULAR HEMOGLOBIN 27 PG (26.0-33.0); MEAN CORPUSCULAR HGB CONC 33 g/dl (31.0-36.0); MEAN CORPUSCULAR VOLUME 83 fL (80-96); MONOCYTES # (AUTO) 1.2 /CMM (0.1-1.30); MONOCYTES % (AUTO) 6.1 % (2.0-12.0); NEUTROPHILS # (AUTO) 17.1 /CMM (1.8-8.9); NEUTROPHILS % (AUTO) 88.7 % (43.0-81.0); PLATELET COUNT (AUTO) 387 /CMM (150-450); RDW COEFFICIENT OF VARIATION 19.3 (11.5-15.0); RED BLOOD CELL COUNT(AUTO) 3.51 MIL/uL (4.5-6.0); WHITE BLOOD COUNT (AUTO) 19.3 K/uL (4.3-11.0)
[2016-09-16 06:51] LABS: CALCIUM, SERUM 10.2 mg/dL (8.5-10.1); CARBON DIOXIDE 38 mmol/L (21-32); CHLORIDE 96 mmol/L (98-107); CREATININE 0.6 mg/dL (0.6-1.3); GLUCOSE 148 mg/dL (74-106); POTASSIUM 4.4 mmol/L (3.5-5.1); SODIUM SERUM 135 mmol/L (136-145); UREA NITROGEN, BLOOD 18 mg/dL (7-18)
[2016-09-16] MEDS: LACTOBACILLUS RHAMNOSUS GG 1 EACH CAP.SPRINK GT SCH (07:55)
[2016-09-16] MEDS: PANTOPRAZOLE 40 MG/PACK PACK GT SCH (07:55)
[2016-09-16] MEDS: DOCUSATE SODIUM LIQ 100 MG/10 ML UDC GT SCH (07:56)
[2016-09-16] MEDS: CLOTRIMAZOLE 1% 15 GM TUBE TP SCH (07:56)
[2016-09-16] MEDS: HYDROGEL DRESSING 90 GM TUBE TP SCH (07:56)
[2016-09-16 09:23] LABS: BAND % (MANUAL) 4 % (0.0-5.0); EOSINOPHILS % (MANUAL) 3 % (0-4); LYMPHOCYTES % (MANUAL) 4 % (16-48); MONOCYTES % (MANUAL) 4 % (0-11.0); NEUTROPHILS % (MANUAL) 85 (42-76)
--- NOTE | 2016-09-16 09:51 | NUR ---
WOUND CARE CONSULT: PT SEEN FOR RT LATERAL NECK LESION AND LEFT SHOULDER AREA. LEFT SHOULDER REMAINS A SCAR. PT HAS VERY FRAGILE SKIN WHICH TEARS EASILY. PT NOTED TO HAVE 4+ PITTING EDEMA ESPECIALLY ON RT SIDE OF BODY TO RT UPPER EXTREMITY. FACE ALSO SWOLLEN WITH THICKENED SKIN AND LESION TO RT NECK. 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 DEFER TO MD AND SURGEON. CONTINUE ALL SKIN PROTECTION MEASURES. DISCUSSED WITH NURSING STAFF. WILL SEE PRN. MD IN AGREEMENT WITH PLAN OF CARE. Addendum: 09/16/16 at 0953 by MARLYN SAL WNDNU Amended: Links added.
[2016-09-16] MEDS ORDERED: LORAZEPAM INJ 2 MG/ML VIAL IV PRN (11:00)
[2016-09-16] MEDS: MORPHINE SULFATE PF DRIP 250 MG in IV D5W 240 ML IV PRN (13:31)
--- NOTE | 2016-09-16 19:20 | NUR ---
PT [facility] WITH NOTED SETTINGS. SUCTIONED LARGE AMOUNT OF YELLOWISH THICK WITH TINGED BLOOD SECRETIONS, BILATERAL BS NOTED. VENT PLUGGED INTO RED OUTLET, VENT ALARMED AND WORKING. AMBU BAG AT BEDSIDE. NO RESPIRATORY DISTRESS AT THIS TIME. WILL CONTINUE TO MONITOR.
--- NOTE | 2016-09-16 19:30 | NUR ---
TELE/RN NOTES RESTING IN BED WITH EYES CLOSED. CALM AND NON-VERBAL. TRACH WITH PORTEX 7 INTACT TO VENT SETTINGS: AC 14, TV450, FIO2 40%, PEEP 5, O2 SAT 94%. SUCTIONED MODERATE AMOUNT OF THICK SECRETIONS, BROWN TO PINKISH VIA TRACH AND ORAL SUCTION WHITE SALIVA. TOLERATED WELL. NSR ON MONITOR. L UPPER ARM MIDLINE SITE CDI WITH MORPHINE DRIP @ 10MG/HR INFUSING WELL. GT CLAMPED. RICE CATH WITH YELLOW URINE. R NECK EDEMATOUS, LESION COVERED WITH MEPILEX. L SHOULDER SCAR WITH MEPILEX. SACRAL AND PERINEAL AREA REDNESS COVERED WITH Z-GUARD. LISSETTE UPPER AND LOWER EXTREMITIES ELEVATED ON PILLOW. PATIENT MADE AWARE OF PLAN OF CARE. APPEARS TO BE COMFORTABLE AND NO COMPLAINTS MADE. BED AT LOWEST POSITION AND LOCKED, HOB ELEVATED, CALL JAIN WITHIN REACH. BED ALARM ON. WILL CONTINUE TO MONITOR.
[2016-09-16] MEDS ORDERED: IV NS 0.9% 250 ML IV ONE (22:46)
[2016-09-16] MEDS: Z GUARD REMEDY 2 OZ OINT TP PRN (23:21)
[2016-09-17] VITALS: BP 112/61
--- NOTE | 2016-09-17 | NUR ---
TELE/RN NOTES TEMP 99.6 AXILIARY. APPLIED COOLING MEASURES INCLUDING ICE PACK TO ARMPIT. WILL CONTINUE TO MONITOR.
[2016-09-17 04:00] VITALS: BP 63/36
--- NOTE | 2016-09-17 06:37 | NUR ---
TELE/RN NOTES NO SIGNIFICANT CHANGES. CONTINUES TO HAVE EYES CLOSED, CALM AND QUIET. TRACH ON VENT WITH SETTINGS @ AC 10, TV 450 FI02 35%, PEEP 6.2, RR 16, SAT 94%. TELE READING ST 100. LEFT UPPER ARM MIDLINE SITE, CDI, WITH MORPHINE DRIP @ 10MG/HR. ALL NEEDS MET AND APPEARS COMFORTABLE. ALL SAFETY MEASURES MET. WILL ENDORSE TO AM SHIFT FOR CONTINUITY OF CARE.
--- NOTE | 2016-09-17 07:15 | NUR ---
RN INITIAL NOTE RECEIVED REPORT FORM PM NURSE. PT A/O X1 PORTEX 7 AC 10 TV 450 FIO2 35% PEEP 6.2. TELE SR RICE INTACT. YOSEF MIDLINE MORPHINE DRIP 10MGHR. PT CLEAN WARM AND DRY. ALL SAFETY MEASURES IN PLACE WILL CONTINUE TO MONITOR CLOSELY. COMFORT MEASURES IN PLACE.
[2016-09-17 08:00] VITALS: BP 89/48
[2016-09-17] MEDS ORDERED: IV NS 0.9% 250 ML IV ONE (10:49)
[2016-09-17 12:00] VITALS: BP 87/53
[2016-09-17 16:00] VITALS: BP 82/44
--- NOTE | 2016-09-17 16:30 | NUR ---
RN NOTE PT FAMILY WANTED PT TO BE REMOVED FROM VENTILATOR RT JHONATAN NOTIFIED.
--- NOTE | 2016-09-17 16:49 | NUR ---
PT TAKEN OFF VENT PER COMFORT MEASURE ORDERS. PLACED ON 5LPM TRACH MASK. FAMILY AT BEDSIDE, BHANU RN AT BEDSIDE DURING PROCEDURE.
[2016-09-17] MEDS: MORPHINE SULFATE PF DRIP 250 MG in IV D5W 240 ML IV PRN (16:59)
--- NOTE | 2016-09-17 19:22 | NUR ---
RN CLOSING NOTE REPORT GIVEN TO CONNOR RN PM NURSE FOR MEL. PT A/O X1 PORTEX 7 5 L VENT TO MASK . DC TELE MONITOR. RICE INTACT. YOSEF MIDLINE MORPHINE DRIP 10MG/HR.GTF CLAMPED. PT CLEAN WARM AND DRY. ALL SAFETY MEASURES IN PLACE. COMFORT MEASURES IN PLACE.
[2016-09-17 20:00] VITALS: BP 105/57
--- NOTE | 2016-09-17 20:00 | NUR ---
MS RN NOTE PT A/O X1 WITH TRACH PORTEX 7 @ 5 LPM MASK . PT NOT IN ANY DISTRESS. NO SOB NOTED. NO S/SX OF PAIN OR DISCOMFORT AT THIS TIME. WITH MORPHINE DRIP @ 10MG/HR. WITH GTF CLAMPED. WITH F/C DRAINING TO YELLOWISH OUTPUT SCANTY IN AMOUNT. PT ON COMFORT MEASURES ONLY. BED IN LOWEST POSITION. SR UP X 3 FOR SAFETY. WILL CONTINUE TO MONITOR.
--- NOTE | 2016-09-17 21:54 | NUR ---
MS RN NOTES PT NOT RESPONSIVE. NO BREATHING PRESENT. NO VITAL SIGNS. PUPILS FIXED AND DILATED. PRONOUNCED BY EVY TANNERY GUMMER AND ME. MIDLINE AND F/C D/CD. POST MORTEM CARE DONE.
--- NOTE | 2016-09-17 22:05 | NUR ---
MS RN NOTES CALLED SON TIFFANI. NOTIFIED HIM REGARDING HIS DAD'S EXPIRATION. WILL COME AND SEE HIS DAD BEFORE MORTUARY PICKS UP THE BODY.
--- NOTE | 2016-09-17 22:16 | NUR ---
MS RN NOTES NOTIFIED [facility] REGARDING PT'S EXPIRATION.
--- NOTE | 2016-09-17 22:30 | NUR ---
MS RN NOTES DR. OTT NOTIFIED RE PT'S EXPIRATION.
== END 2016-09-18 00:57 | disposition expired | DRG 130 ==
LOC: ER 15:19 → TELE1 16:49 → TELE-TD 17:17 → TELE1 09-09 11:08 → MEDSG1 09-17 18:11
PROVIDERS: ADMIT Family Medicine; ATTEND Family Medicine
PROC: 5A1955Z Respiratory Ventilation, Greater than 96 Consecutive Hours (ICD-10-PCS; 2016-09-06)
PROC: 30233N1 Transfusion of Nonautologous Red Blood Cells into Peripheral Vein, Percutaneous Approach (ICD-10-PCS; principal; 2016-09-07)
PROC: 0W993ZZ Drainage of Right Pleural Cavity, Percutaneous Approach (ICD-10-PCS; 2016-09-09)
DX: J95.851 Ventilator associated pneumonia (principal); R65.20 Severe sepsis without septic shock; E43 Unspecified severe protein-calorie malnutrition; J86.9 Pyothorax without fistula; A41.9 Sepsis, unspecified organism; G93.40 Encephalopathy, unspecified; J96.21 Acute and chronic respiratory failure with hypoxia; J90 Pleural effusion, not elsewhere classified; E87.4 Mixed disorder of acid-base balance; Z99.11 Dependence on respirator [ventilator] status; R53.2 Functional quadriplegia; C14.0 Malignant neoplasm of pharynx, unspecified; D63.0 Anemia in neoplastic disease; Z93.0 Tracheostomy status; D50.9 Iron deficiency anemia, unspecified; D68.59 Other primary thrombophilia; L03.211 Cellulitis of face; K21.9 Gastro-esophageal reflux disease without esophagitis; Y84.8 Other medical procedures as the cause of abnormal reaction of the patient, or of later complication, without mention of misadventure at the time of the procedure; Z66 Do not resuscitate; Z87.891 Personal history of nicotine dependence; Z93.1 Gastrostomy status; Z92.3 Personal history of irradiation; Z87.11 Personal history of peptic ulcer disease; G89.29 Other chronic pain; I25.10 Atherosclerotic heart disease of native coronary artery without angina pectoris; Y92.129 Unspecified place in nursing home as the place of occurrence of the external cause; C78.01 Secondary malignant neoplasm of right lung; C78.02 Secondary malignant neoplasm of left lung; C79.2 Secondary malignant neoplasm of skin; C79.31 Secondary malignant neoplasm of brain; Z68.26 Body mass index [BMI] 26.0-26.9, adult; I50.9 Heart failure, unspecified; E88.09 Other disorders of plasma-protein metabolism, not elsewhere classified; H05.221 Edema of right orbit; L98.8 Other specified disorders of the skin and subcutaneous tissue; Z51.5 Encounter for palliative care; I11.0 Hypertensive heart disease with heart failure; R13.10 Dysphagia, unspecified; Y83.3 Surgical operation with formation of external stoma as the cause of abnormal reaction of the patient, or of later complication, without mention of misadventure at the time of the procedure; Y82.8 Other medical devices associated with adverse incidents; L89.152 Pressure ulcer of sacral region, stage 2; B96.5 Pseudomonas (aeruginosa) (mallei) (pseudomallei) as the cause of diseases classified elsewhere
CPT/HCPCS: 31720; 36415; 36600; 71010-TC; 71270-TC; 76942-TC; 80048-TC; 80053-TC; 80076-TC; 80202-TC; 81000-TC; 82272-TC; 82728-TC; 82746; 82803-TC; 83540-TC; 83605-TC; 83735-TC; 83880; 84100-TC; 84155; 84165; 84439-TC; 84443-TC; 84484-TC; 85025-TC; 85730-TC; 86850-TC; 86921-TC; 87040-TC; 87070-TC; 87081-TC; 87186-TC; 88305-TC; 88312-TC; 88342; 89051-TC; 93307-TC; 94002-TC; 94003-TC; 94640-TC; 94760-TC; 94761-TC; 94762-TC; 99082-TC; A4216; A4606; A6248; A6253; A6402; A6403; A7526; J1650; J1956; J2274; J2543; J3370; J7030; J7050; J7060; P9016-BL; P9047; Q9967; Z7610